=== PATIENT | male | born 1945 | race Caucasian/White ===

== ENCOUNTER 2016-10-24 10:40 | Emergency (ER) | payer MEDICARE, BC ==
[2016-10-24] MEDS ORDERED: Sodium Chloride 0.9% 10 ML Syringe FLUSH PRN (11:44)
--- NOTE | 2016-10-24 11:45 | EDM.PDOC ---
ED HPI GENERAL MEDICAL PROBLEM - General Chief Complaint: Chest Pain Stated Complaint: CHEST PAIN Time Seen by Provider: 10/24/16 11:09 Source of Information: Reports: Patient, Family, RN, RN Notes Reviewed History Limitations: Reports: No Limitations - History of Present Illness INITIAL COMMENTS - FREE TEXT/NARRATIVE: Patient presents to the ED at [facility] with vague complaints of chest pain. Patient states his chest pain started over the past 2 weeks and has been waxing and waining. He denies any SOB. No N/V/D. Patient has a history of a cardiac stent from 1995. He denies any focal neurological deficits. He states his pain is a dull ache. He does not think it is related to heartburn. He is not away of any activity that makes the pain worse. He has not sought any other prior medical treatment since the onset. Onset: Gradual Duration: Waxing/Waning Location: Reports: Chest Quality: Reports: Ache, Dull Severity: Mild Improves with: Reports: None Worsens with: Reports: None Associated Symptoms: Reports: No Other Symptoms Treatments [employer]ER: Reports: Other (see below) (None) - Related Data Allergies Allergy/AdvReac Type Severity Reaction Status Date / Time acetaminophen AdvReac Blurred Verified 10/24/16 12:28 [From Darvocet-N 100] [facility] NSAIDS (Non-Steroidal AdvReac Renal Verified 10/24/16 12:28 Anti-Inflamma Failure propoxyphene napsylate AdvReac Blurred Verified 10/24/16 12:28 [From Darvocet-N 100] [facility] Home Meds: Home Meds Magnesium 1,000 mg PO BID 04/03/13 [History] Omeprazole [Prilosec] 20 mg PO DAILY 04/03/13 [History] Opium Tincture 0.6 ml PO TIDMEALS 04/03/13 [History] traZODone 100 - 200 mg PO BEDTIME PRN 04/03/13 [History] Aspirin 325 mg PO DAILY 10/25/15 [History] Nitroglycerin [Nitrostat] 0.4 mg SL Q5M PRN 10/25/15 [History] Potassium Chloride [Klor-Con M20] 40 meq PO QID 10/25/15 [History] ALPRAZolam [Alprazolam] 1 tab PO BEDTIME 06/19/16 [History] Past Medical History HEENT History: Reports: Allergic Rhinitis, Cataract, Other (See Below) Other HEENT History: astigmatism Cardiovascular History: Reports: CAD, High Cholesterol, Other (See Below) Other Cardiovascular History: superior vena cava obstruction Respiratory History: Reports: Other (See Below) Other Respiratory History: nocturnal hypoxemia, lung mass Gastrointestinal History: Reports: Chronic Diarrhea, GERD, Other (See Below) Other Gastrointestinal History: ulcertive colitis Genitourinary History: Reports: Prostate Disorder, Other (See Below) Other Genitourinary History: CKD stage 4 Musculoskeletal History: Reports: Osteoarthritis, Other (See Below) Other Musculoskeletal History: ankylosing spondylitis, restless leg syndrome Psychiatric History: Reports: Anxiety, Depression, Other (See Below) Other Psychiatric History: insomnia Endocrine/Metabolic History: Reports: Other (See Below) Other Endocrine/Metabolic History: hypomagnesemia, hypokalemia, B-12 deficiency - Past Surgical History Cardiovascular Surgical History: Reports: Coronary Artery Stent GI Surgical History: Reports: Other (See Below) Musculoskeletal Surgical History: Reports: Knee Replacement, Shoulder Surgery Social & Family History - Tobacco Use Smoking Status *Q: Former Smoker - Alcohol Use Days Per Week of Alcohol Use: 0 - Recreational Drug Use Recreational Drug Use: No ED ROS GENERAL - Review of Systems Review Of Systems: See Below Constitutional: Denies: Fever, Chills, Weakness Respiratory: Denies: Shortness of Breath, Cough Cardiovascular: Reports: Chest Pain. Denies: Dyspnea on Exertion, Palpitations GI/Abdominal: Denies: Abdominal Pain, Nausea, Vomiting Skin: Reports: No Symptoms Neurological: Reports: No Symptoms. Denies: Headache, Numbness, Paresthesia, Tingling ED EXAM, GENERAL - Physical Exam Exam: See Below Exam Limited By: No Limitations General Appearance: Alert, No Apparent Distress Respiratory/Chest: No Respiratory Distress, Lungs Clear, Normal Breath Sounds Cardiovascular: Normal Peripheral Pulses, Regular Rate, Rhythm, No Murmur Peripheral Pulses: 2+: Radial (L), Radial (R) GI/Abdominal: Normal Bowel Sounds, Soft, Non-Tender Neurological: Alert, Oriented Skin Exam: Warm, Dry, Intact, Normal Color, No Rash EKG INTERPRETATION EKG Date: 10/24/16 Time: 10:51 Rhythm: Other Rate (Beats/Min): 60 [place]: Normal P-Wave: Present QRS: Normal ST-T: Normal QT: Normal WV/PQ Interval: 0.17 Comparison: No Change EKG Interpretation Comments: 1. Ectopic atrial rhythm 2. Possible right ventricular hypertrophy 3. Lateral myocardial infarction, of indeterminate age Course - Vital Signs Last Recorded V/S: Last Vital Signs Temp 35.6 C 10/24/16 10:45 Pulse 68 10/24/16 10:45 Resp 18 10/24/16 10:45 BP 129/69 10/24/16 10:45 Pulse Ox 97 10/24/16 10:45 - Orders/Labs/Meds Orders: Active Orders 24 hr Category Date Time Status EKG 12 Lead [EKG Documentation Completion] [RC] STAT Care 10/24/16 11:44 Ordered Chest 2V [CR] Stat Exams 10/24/16 11:43 Taken Sodium Chloride 0.9% [Saline Flush] Med 10/24/16 11:44 Active 10 ml FLUSH ASDIRECTED PRN Peripheral IV Insertion Adult [OM.PC] Routine Oth 10/24/16 11:44 Ordered Medication Orders Sodium Chloride (Saline Flush) 10 ml FLUSH ASDIRECTED PRN PRN Reason: Keep Vein Open Labs: Laboratory Tests 10/24/16 10/24/16 Range/Units 12:04 12:04 WBC 7.9 (4.0-10.0) x10^3/uL RBC 4.60 (4.5-6.0) x10^6/uL Hgb 15.2 (14.0-18.0) g/dL Hct 43.0 (40.0-52.0) % MCV 93.5 H (78.0-93.0) fL MCH 33.0 H (26.0-32.0) pg MCHC 35.3 (32.0-36.0) g/dL RDW Coeff of Kaleb 12.5 (10.0-15.0) % Plt Count 187 (130-400) x10^3/uL Neut % (Auto) 65.3 (50.0-80.0) % Lymph % (Auto) 20.4 L (25.0-50.0) % [place] % (Auto) 8.2 (2.0-11.0) % Eos % (Auto) 5.7 H (0.0-4.0) % Baso % (Auto) 0.4 (0.2-1.2) % Sodium 133 L (136-145) mmol/L Potassium 4.0 (3.5-5.1) mmol/L Chloride 97 L (98-107) mmol/L Carbon Dioxide 28 (21-32) mmol/L BUN 48 H (7-18) mg/dL Creatinine 2.8 H (0.70-1.30) mg/dL Est Cr Clr Drug Dosing TNP Estimated GFR (MDRD) 22 Glucose 81 (74-106) mg/dL Calcium 9.1 (8.5-10.1) mg/dL Corrected Calcium 9.18 (8.5-10.1) mg/dL Phosphorus 4.8 H (2.6-4.7) mg/dL Magnesium 2.2 (1.8-2.4) mg/dL Total Bilirubin 1.0 (0.2-1.0) mg/dL AST 14 L (15-37) U/L ALT 26 (16-63) U/L Alkaline Phosphatase 69 (46-116) U/L Creatine Kinase 45 (39-308) U/L Creatine Kinase Index 2.4 (0.0-4.0) % CK-MB (CK-2) 1.1 (0.0-3.6) ng/mL Troponin I < 0.017 (<=0.056) ng/mL Total Protein 7.7 (6.4-8.2) g/dL Albumin 3.9 (3.4-5.0) g/dL Globulin 3.8 Albumin/Globulin Ratio 1.03 Meds: Medications Generic Name Dose Route Start Last Admin Trade Name Freq PRN Reason Stop Dose Admin Sodium Chloride 10 ml 10/24/16 11:44 Saline Flush FLUSH ASDIRECTED PRN Keep Vein Open Departure - Departure Time of Disposition: 12:45 Disposition: Home, Self-Care 01 Condition: Good Clinical Impression: Atypical chest pain Instructions: Nonspecific Chest Pain, [id number] Referrals: Juliana Coleman DO [Primary Care Provider] - Forms: ED Department Discharge Additional Instructions: 1. All blood work and other testing was normal today 2. Stay well hydrated and rest 3. Follow up with your Primary Care Provider - Problem List Review Problem List Initiated/Reviewed/Updated: Yes - My Orders Last 24 Hours: My Active Orders 10/24/16 11:43 Chest 2V [CR] Stat 10/24/16 11:44 EKG 12 Lead [EKG Documentation Completion] [RC] STAT Sodium Chloride 0.9% [Saline Flush] 10 ml FLUSH ASDIRECTED PRN Peripheral IV Insertion Adult [OM.PC] Routine - Assessment/Plan Last 24 Hours: My Active Orders 10/24/16 11:43 Chest 2V [CR] Stat 10/24/16 11:44 EKG 12 Lead [EKG Documentation Completion] [RC] STAT Sodium Chloride 0.9% [Saline Flush] 10 ml FLUSH ASDIRECTED PRN Peripheral IV Insertion Adult [OM.PC] Routine
[2016-10-24 12:24] VITALS: BP 129/69
[2016-10-24 12:40] LABS: CHLORIDE,CL 97 mmol/L (98-107); SODIUM,NA 133 mmol/L (136-145)
== END 2016-10-24 12:56 | disposition home or self-care (01) ==
LOC: VM.ED 10:40
DX: R07.89 Other chest pain (principal); I25.10 Atherosclerotic heart disease of native coronary artery without angina pectoris; E78.00 Pure hypercholesterolemia, unspecified; K21.9 Gastro-esophageal reflux disease without esophagitis; F41.9 Anxiety disorder, unspecified; F32.9 Major depressive disorder, single episode, unspecified; N18.4 Chronic kidney disease, stage 4 (severe); M19.90 Unspecified osteoarthritis, unspecified site; Z87.891 Personal history of nicotine dependence; Z79.82 Long term (current) use of aspirin; Z79.899 Other long term (current) drug therapy; Z88.8 Allergy status to other drugs, medicaments and biological substances
CPT/HCPCS: 36415; 71020; 80053; 82550; 82553; 83735; 84100; 84484; 85025; 93005; 99284-GF; 99285

== ENCOUNTER 2017-06-19 14:13 | Emergency (ER) | payer MEDICARE, BC ==
[2017-06-19 14:26] VITALS: BP 129/61
[2017-06-19] MEDS ORDERED: Lidocaine 2% Jelly 10 ML Urojet MUCMEM ONE (14:46)
--- NOTE | 2017-06-19 17:10 | EDM.PDOC ---
ED HPI GENERAL MEDICAL PROBLEM - General Chief Complaint: Genitourinary Problem Stated Complaint: CATHETER PROBLEMS Time Seen by Provider: 06/19/17 14:18 Source of Information: Reports: Patient - History of Present Illness INITIAL COMMENTS - FREE TEXT/NARRATIVE: Developed hematuria yesterday. Had been self cathing intermittently due to urinary retention malfunctioning. He does also have cystic lesions on his kidney. Onset Date: 06/18/17 Duration: Getting Worse Location: Reports: Abdomen Quality: Reports: Ache, Burning - Related Data Allergies Allergy/AdvReac Type Severity Reaction Status Date / Time Dzuivbq-Cii-Amo Reductase Allergy Other Verified 06/19/17 14:29 Inhibitor acetaminophen AdvReac Blurred Verified 06/19/17 14:29 [From Darvocet-N 100] [facility] NSAIDS (Non-Steroidal AdvReac Renal Verified 06/19/17 14:29 Anti-Inflamma Failure propoxyphene napsylate AdvReac Blurred Verified 06/19/17 14:29 [From Darvocet-N 100] [facility] Home Meds: Home Meds Magnesium 500 mg PO BID 04/03/13 [History] Opium Tincture 0.6 ml PO TIDMEALS 04/03/13 [History] traZODone 100 - 200 mg PO BEDTIME PRN 04/03/13 [History] Nitroglycerin [Nitrostat] 0.4 mg SL Q5M PRN 10/25/15 [History] Potassium Chloride [Klor-Con M20] 40 meq PO TID 10/25/15 [History] ALPRAZolam [Alprazolam] 1 tab PO BEDTIME 06/19/16 [History] Aspirin 81 mg PO DAILY 06/19/17 [History] Cholecalciferol (Vitamin D3) [Vitamin D3] 5,000 unit PO DAILY 06/19/17 [History] Cyanocobalamin (Vitamin B-12) [Cyanocobalamin Injection] 1,000 mcg IJ Q14D 06/19 [History] Mirtazapine [Remeron] 15 mg PO BEDTIME 06/19/17 [History] Tamsulosin [Tamsulosin 24 Hr] 0.4 mg PO DAILY 06/19/17 [History] Thiamine HCl [B-1] 100 mg PO DAILY 06/19/17 [History] Past Medical History HEENT History: Reports: Allergic Rhinitis, Cataract, Other (See Below) Other HEENT History: astigmatism Cardiovascular History: Reports: CAD, High Cholesterol, Other (See Below) Other Cardiovascular History: superior vena cava obstruction Respiratory History: Reports: Other (See Below) Other Respiratory History: nocturnal hypoxemia, lung mass Gastrointestinal History: Reports: Chronic Diarrhea, GERD, Other (See Below) Other Gastrointestinal History: ulcertive colitis Genitourinary History: Reports: Prostate Disorder, Other (See Below) Other Genitourinary History: CKD stage 4 Musculoskeletal History: Reports: Osteoarthritis, Other (See Below) Other Musculoskeletal History: ankylosing spondylitis, restless leg syndrome Psychiatric History: Reports: Anxiety, Depression, Other (See Below) Other Psychiatric History: insomnia Endocrine/Metabolic History: Reports: Other (See Below) Other Endocrine/Metabolic History: hypomagnesemia, hypokalemia, B-12 deficiency - Past Surgical History Cardiovascular Surgical History: Reports: Coronary Artery Stent GI Surgical History: Reports: Other (See Below) Musculoskeletal Surgical History: Reports: Knee Replacement, Shoulder Surgery Social & Family History - Tobacco Use Smoking Status *Q: Unknown Ever Smoked ED ROS GENERAL - Review of Systems Review Of Systems: See Below Constitutional: Reports: No Symptoms HEENT: Reports: No Symptoms Respiratory: Reports: No Symptoms Cardiovascular: Reports: No Symptoms Endocrine: Reports: No Symptoms GI/Abdominal: Reports: No Symptoms : Reports: Hematuria Musculoskeletal: Reports: No Symptoms Skin: Reports: No Symptoms Neurological: Reports: No Symptoms Psychiatric: Reports: No Symptoms Hematologic/Lymphatic: Reports: No Symptoms Immunologic: Reports: No Symptoms ED EXAM, GENERAL - Physical Exam Exam: See Below Exam Limited By: No Limitations General Appearance: Alert, WD/WN, No Apparent Distress Ears: Normal External Exam, Normal Canal, Hearing Grossly Normal, Normal TMs Ear Exam: Bilateral Ear: Auricle Normal, Canal Normal, TM normal Nose: Normal Inspection, Normal Mucosa, No Blood Throat/Mouth: Normal Inspection, Normal Lips, Normal Teeth, Normal Gums, Normal Oropharynx, Normal Voice, No Airway Compromise Head: Atraumatic, Normocephalic Neck: Normal Inspection, Supple, Non-Tender, Full Range of Motion Respiratory/Chest: No Respiratory Distress, Lungs Clear, Normal Breath Sounds, No Accessory Muscle Use, Chest Non-Tender Cardiovascular: Normal Peripheral Pulses, Regular Rate, Rhythm, No Edema, No Gallop, No JVD, No Murmur, No Rub GI/Abdominal: Normal Bowel Sounds, Soft, Non-Tender, No Organomegaly (Male) Exam: No Hernia, Normal Inspection, Normal Prostate Rectal (Males) Exam: Deferred Back Exam: Normal Inspection, Full Range of Motion Extremities: Normal Inspection, Normal Range of Motion, Non-Tender Neurological: Alert, Oriented, CN II-XII Intact, Normal Cognition, Normal Gait, Normal Reflexes, No Motor/Sensory Deficits Psychiatric: Normal Affect, Normal Mood Skin Exam: Warm, Dry, Intact, Normal Color, No Rash Lymphatic: No Adenopathy Course - Vital Signs Last Recorded V/S: Last Vital Signs Temp 37.2 C 06/19/17 14:18 Pulse 60 06/19/17 14:18 Resp 18 06/19/17 14:18 BP 129/61 06/19/17 14:18 Pulse Ox 99 06/19/17 14:18 - Orders/Labs/Meds Orders: Active Orders 24 hr Category Date Time Status Bladder Scan [RC] ONETIME Care 06/19/17 14:45 Active Urinary Catheter Assessment [RC] ASDIRECTED Care 06/19/17 14:50 Active Urinary Catheter Insertion [Insert Urinary Catheter] [ Care 06/19/17 15:00 Ordered OM.PC] Q24H Abdomen Pelvis wo Cont [CT] Stat Exams 06/19/17 15:18 Taken Meds: Medications Discontinued Medications Generic Name Dose Route Start Last Admin Trade Name Gibsonq PRN Reason Stop Dose Admin Lidocaine HCl 10 ml 06/19/17 14:46 06/19/17 15:05 Xylocaine 2% Jelly MUCMEM 06/19/17 14:47 10 ml ONETIME ONE Administration - Radiology Interpretation Free Text/Narrative:: CT abd/pelvis shows hypertrophied bladder wall, and numerous cystic lesions in both kidneys. Source of bleeding likely the bladder. Suggested F/U for cysto and MRI of the abdomen and pelvis. Departure - Departure Time of Disposition: 16:48 Disposition: Home, Self-Care 01 Clinical Impression: Cystitis - Discharge Information Instructions: Urinary Tract Infection, Adult Referrals: Juliana Coleman DO [Primary Care Provider] - Forms: ED Department Discharge Additional Instructions: Follow-up with nephrology and urology. You will need a cystogram to determine if the bleeding is just from the bladder or if it involves the kidneys as well. - My Orders Last 24 Hours: My Active Orders 06/19/17 14:45 Bladder Scan [RC] ONETIME 06/19/17 14:50 Urinary Catheter Assessment [RC] ASDIRECTED 06/19/17 15:00 Urinary Catheter Insertion [Insert Urinary Catheter] [OM.PC] Q24H 06/19/17 15:18 Abdomen Pelvis wo Cont [CT] Stat - Assessment/Plan Last 24 Hours: My Active Orders 06/19/17 14:45 Bladder Scan [RC] ONETIME 06/19/17 14:50 Urinary Catheter Assessment [RC] ASDIRECTED 06/19/17 15:00 Urinary Catheter Insertion [Insert Urinary Catheter] [OM.PC] Q24H 06/19/17 15:18 Abdomen Pelvis wo Cont [CT] Stat
== END 2017-06-19 16:48 | disposition home or self-care (01) ==
LOC: VM.ED 14:13
DX: N30.91 Cystitis, unspecified with hematuria (principal); N18.4 Chronic kidney disease, stage 4 (severe); Z88.8 Allergy status to other drugs, medicaments and biological substances; Z79.82 Long term (current) use of aspirin; Z79.899 Other long term (current) drug therapy
CPT/HCPCS: 51702; 74176; 99284

== ENCOUNTER 2018-09-14 10:50 | Inpatient (IN) | payer MEDICARE, BC ==
[2018-09-14] MEDS ORDERED: Sodium Chloride 0.9% 10 ML Syringe FLUSH PRN (11:49)
[2018-09-14] MEDS: Sodium Chloride 0.9% 1,000 ML IV SCH ×2 (12:29→17:58)
[2018-09-14] MEDS ORDERED: Nitroglycerin 0.4 MG Tab.SL SL PRN (14:07)
[2018-09-14] MEDS ORDERED: traZODone 50 MG Tab PO PRN (14:07)
--- NOTE | 2018-09-14 16:17 | CR ---
[id number] RAD/RAD Chest PA And Lateral EXAM: RAD Chest PA And Lateral INDICATION: COUGH. COMPARISON: CT abdomen pelvis 06/19/2017, chest radiograph 10/24/2016. DISCUSSION: Cardiomediastinal silhouette is normal in size and contour. No infiltrate, effusion, pneumothorax, or edema. 2.9 cm right lower lobe mass is again identified. Extensive changes of chronic obstructive pulmonary disease. IMPRESSION: No acute cardiopulmonary findings. Again identified is a 2.9 cm right lower lobe mass. Kelby Hobbs DO 09/14/18 [id number] Thank you for allowing us to participate in the care of your patient.
[2018-09-14] MEDS: OPIUM TINCTURE 10 MG/ML PO SCH (17:11)
[2018-09-14 17:26] LABS: ANION GAP 17.6 mmol/L (10-20)
[2018-09-14] MEDS ORDERED: Gabapentin 100 MG Cap PO SCH (20:00)
[2018-09-14] MEDS ORDERED: ALPRAZolam 0.25 MG Tab PO SCH (20:00)
[2018-09-14] MEDS: Sodium Bicarbonate 650 MG Tab PO SCH (21:54)
--- NOTE | 2018-09-15 00:05 | HP ---
CHIEF COMPLAINT: Dizziness, not feeling well, hypercalcemia. HISTORY OF PRESENT ILLNESS: This is a 73-year-old male, who has chronic kidney disease stage 4, GFR around 18, who had come to the clinic for routine lab work today and his calcium was 13.1, albumin normal. A week ago, his calcium was 9. He is on calcitriol every other day. He took a dose last evening. He follows with Nephrology. He is also on sodium bicarb. His BUN has been up to 59 today. He has required some IV fluids through the clinic and has been getting biopsy for a right lung mass at [facility], but it came back negative. However, they are planning another biopsy on Friday. He has had a cough, but no fever, no chills. He does have a past medical history of ulcerative colitis and resection, so he has malabsorption. He has been drinking more water, so has noted a lot of watery ostomy output and he normally takes a tincture of opium to control his diarrhea. ALLERGIES: Include NSAIDs, Darvocet, statins. MEDICATIONS: His medication list is reviewed and does include potassium 60 mEq 3 times a day, magnesium 500 daily, B12 every 2 weeks, sodium bicarb 650 b.i.d., tincture of opium 6 mg 3 times a day before meals, trazodone 100 to 200 mg as needed for sleep, Neurontin 200 mg at bedtime, Xanax 0.25 mg at bedtime, calcitriol 0.25 every other day, nitroglycerin as needed for chest pain, ostomy supplies, aspirin 81 mg daily. PAST MEDICAL HISTORY: Quite extensive, includes ankylosing spondylitis; allergic rhinitis; anxiety; B12 deficiency; BPH, he has had laser TURP surgery at 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 Otherwise, other surgeries include right total knee, left total knee, tonsils and adenoids, colonoscopy, colectomy with ileostomy, internal reservoir in 1991, 1995 removal of the internal reservoir and ileostomy placed again, arthroscopy of both shoulders. SOCIAL HISTORY: The patient is . He lives at home with his around [facility]. He has 2 daughters and 2 sons. He is a nonsmoker currently. FAMILY HISTORY: Father had dementia. Mother had heart disease. Both are . REVIEW OF SYSTEMS: GENERAL: The patient has generally felt fatigued and unwell. His weight has actually gone down about 9 pounds over the last 4 months. No fever, no chills. HEENT: No trouble swallowing. CARDIAC: No chest pain. No palpitations. RESPIRATORY: No shortness of breath, but he has had cough. ABDOMEN: No abdominal pain, but more ostomy output. Otherwise, all systems reviewed and found to be negative unless otherwise stated. He is having no new bone aches or pains. PHYSICAL EXAMINATION: VITAL SIGNS: On admission, temperature 97.1, weight 79.6 kg, pulse 69, blood pressure 128/86, respiratory rate 16, O2 of 100 on room air. GENERAL: He is in no acute distress. HEART: Regular rate and rhythm. S1, S2 without murmur. LUNGS: Lung sounds are clear to auscultation bilaterally without crackles or wheezes. ABDOMEN: Has an ostomy in place. It is soft. Positive bowel sounds. Nontender. EXTREMITIES: Warm and dry. No edema. SKIN: Normal. No paleness noted. No pitting edema. MENTAL STATUS: Alert and orientated x3. LABORATORY DATA: Lab work reviewed through the clinic this morning, did show him to have a glucose of 95, BUN 59, creatinine 3.4, sodium 129, potassium 4.6, chloride 101, bicarb 16, calcium 13.1, albumin 4.3, phosphorus 4.1. GFR 18. ASSESSMENT: 1. Acute hypercalcemia, likely due to medications with the calcitriol. I believe we will be able to just rehydrate with IV fluids. Repeat a calcium later today. Consider some calcitonin if needed. Probably will need to avoid any bisphosphonates given his severe kidney disease. 2. Hyponatremia, probably due to increased water intake. His sodium level is stable when compared to last week. We will continue to monitor. 3. Chronic kidney disease stage 4, severe. He is near his baseline. He is following closely with Nephrology. 4. Lung mass. He has an upcoming biopsy this week. We will see how he is doing tomorrow. 5. Acidosis, likely due to renal failure. He is on the sodium bicarb. 6. Remote history of coronary artery disease with stenting. 7. Anxiety. We will continue his home medications for sleep as well. PLAN: At this point, patient is admitted to acute cares. We will give him 200 mL of fluid per hour for the 1st L and repeat lab work. We will monitor urine output closely. We will get a bladder scan. We will get lab work in the morning as well. We will get a PTH and a PTHrP, and vitamin D, although he denies any other exogenous use of that. He is a code level 1. I held off on DVT prophylaxis. We will reassess tomorrow. He may be able to go home as soon as tomorrow if things improve. Otherwise, all this was discussed with him and his . They are comfortable with the plan. THIERRYA: 09/14/2018 17:19:05 MODL: 09/14/2018 23:57:56 /[id number]
[2018-09-15 06:43] VITALS: BP 131/61; PULSE 70
[2018-09-15 06:55] LABS: ANION GAP 17.5 mmol/L (10-20)
[2018-09-15] MEDS: OPIUM TINCTURE 10 MG/ML PO SCH (07:00)
[2018-09-15] MEDS: Sodium Bicarbonate 650 MG Tab PO SCH (07:17)
[2018-09-15] MEDS: Sodium Chloride 0.9% 1,000 ML IV SCH (07:17)
[2018-09-15] MEDS ORDERED: Potassium Chloride 20 MEQ Tab.ER PO SCH ×2 (08:14→20:00)
--- NOTE | 2018-09-16 02:28 | DISCH ---
PRIMARY DISCHARGE DIAGNOSIS: Severe hypercalcemia with dizziness. SECONDARY DISCHARGE DIAGNOSES: 1. Chronic kidney disease stage 4, severe. 2. Dehydration. 3. Secondary hyperparathyroidism due to renal insufficiency, on calcitriol. 4. History of ulcerative colitis with previous bowel resection and malabsorption. 5. High ostomy output on opium. 6. Lung mass, planning for repeat biopsy this week at [facility]. 7. 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 8. Remote history of coronary artery disease with stent back in 1995 to the right coronary artery. 9. Neurogenic bladder and benign prostatic hypertrophy with surgery 1 year ago. The patient was emptying okay, postvoid residual here under 10. 10.Moderate chronic obstructive pulmonary disease, not requiring inhalers and remote history of smoking. 11.Insomnia. 12.Anxiety. 13.Hypomagnesemia. 14.Hypokalemia. 15.Hyperlipidemia. 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 17.Ankylosing spondylitis. REASON FOR ADMISSION: On the date of admission, this 73-year-old came in for routine weekly labs due to worsening renal function. His calcium, which was normal the week prior was 13.1, his creatinine was 3.4, which had been around his recent baseline, sodium 129, also around his recent baseline. He had been drinking more water, but feeling poorly at home, dizzy, had had to have fluids at outpatient last week. Decision was made to admit him, hold his calcitriol, monitor lab work, and give him further medications for hypercalcemia as needed. His calcium came down nicely and was actually 8.6 on discharge with just the fluids. He had a total of 3.5 L in and was voiding adequately during his stay. Overall, feeling much better and stable and ready for discharge on the . PHYSICAL EXAMINATION: VITAL SIGNS: Discharge vitals include a temperature of 97.3, pulse 70, blood pressure 131/61, respiratory rate 16, O2 of 99% on room air. GENERAL: He is in no acute distress. HEART: Regular rate and rhythm. S1, S2 without murmur. LUNGS: Lung sounds are clear to auscultation bilaterally without crackles or wheezes. ABDOMEN: Nondistended, nontender. EXTREMITIES: Warm and dry. No edema. MENTAL STATUS: He is alert and orientated x3. DISCHARGE PLANS/INSTRUCTIONS: We did leave his right arm IV in place as he is going for a biopsy tomorrow at [facility]. He will have lab work again Friday, which will include a magnesium, magnesium will be on hold till then. 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 PTH and PTHrP were drawn here and are pending. His potassium was decreased to 60 twice daily. In fact, it was held here as he had a potassium that remained stable at 4.5. His followup with me will be on 09/24/2018. We will look for his lab work again this coming Friday with a mag. MKA: 09/15/2018 15:42:28 MODL: 09/16/2018 02:20:09 /[id number]
== END 2018-09-15 09:39 | disposition home or self-care (01) | DRG 641 ==
LOC: VM.MS 11:27
PROVIDERS: ADMIT Internal Medicine; ATTEND Internal Medicine
DX: E83.52 Hypercalcemia (principal); N18.4 Chronic kidney disease, stage 4 (severe); N25.81 Secondary hyperparathyroidism of renal origin; E87.1 Hypo-osmolality and hyponatremia; E86.0 Dehydration; E78.5 Hyperlipidemia, unspecified; E87.6 Hypokalemia; E53.8 Deficiency of other specified B group vitamins; G47.00 Insomnia, unspecified; M45.9 Ankylosing spondylitis of unspecified sites in spine; F41.9 Anxiety disorder, unspecified; J44.9 Chronic obstructive pulmonary disease, unspecified; I25.10 Atherosclerotic heart disease of native coronary artery without angina pectoris; K21.9 Gastro-esophageal reflux disease without esophagitis; G89.29 Other chronic pain; M54.9 Dorsalgia, unspecified; G25.81 Restless legs syndrome; T45.2X5A Adverse effect of vitamins, initial encounter; R91.8 Other nonspecific abnormal finding of lung field; Z95.5 Presence of coronary angioplasty implant and graft
CPT/HCPCS: 36415; 51798; 71046; 80048; 80069; 82306; 82397; 83970; 85025; 93005; A9270-GY; J7030

== ENCOUNTER 2018-10-14 11:28 | Observation (INO) | payer MEDICARE, BC ==
[2018-10-14] MEDS ORDERED: Sodium Chloride 0.9% 10 ML Syringe FLUSH PRN (12:11)
[2018-10-14] MEDS ORDERED: cefTRIAXone 1 GM Vial IVPUSH ONE (12:14)
[2018-10-14] MEDS: Sodium Chloride 0.9% 1,000 ML IV SCH ×2 (12:48→17:50)
--- NOTE | 2018-10-14 13:48 | HP ---
CHIEF COMPLAINT: Renal failure and bladder infection. HISTORY OF PRESENT ILLNESS: This is a 73-year-old male with known chronic kidney disease stage 4 to 5 with recent worsening of creatinine up to 4.46 yesterday, BUN 94. He got 1 L of fluids. He does feel a little better, but he is lightheaded upon standing. He has not had a good appetite, but is not nauseated. In the past 3-4 days now, he has had burning with urination and some urgency. He had a history of BPH surgery over a year ago that went well. When he was last hospitalized, he was not retaining. He has had low-grade fevers less than 100 and some left low back pain. He does have a history of kidney stones as well as a culture that was done in September from his knitting machine operator, which showed Citrobacter, but he was not treated as he was not having any symptoms at that time. The patient also has a new diagnosis of lung cancer. He is planning on meeting with Radiation people next week. He has not started any treatments. Otherwise, he has not had any shortness of breath. No new coughing problems. He has felt some chills. ALLERGIES: Include NSAIDs, kidney failure, Darvocet, blurred vision, and statin intolerance. MEDICATIONS: Currently include: 1. Xanax 0.25 every 8 hours as needed for nervousness. 2. Potassium 60 mEq twice daily. 3. B12 injections every 2 weeks. 4. Sodium bicarb 650 two times a day. 5. Opium 3 times a day to prevent high ostomy output. 6. Trazodone 100 mg 1-2 at bedtime. 7. Nitroglycerin as needed for chest pain. 8. Aspirin 81 mg daily. 9. Neurontin 200 at bedtime. PAST MEDICAL HISTORY: Quite complex. Includes new adenocarcinoma of the right lung diagnosed in September by biopsy; ankylosing spondylitis; chronic anxiety; B12 deficiency; BPH with atonic bladder; coronary artery disease with remote stenting in 1995; severe chronic kidney disease stage 4, but recently creatinine had been less than 4; chronic diarrhea with ileostomy due to his history of previous bowel resections for ulcerative colitis. This is likely what contributed to his renal failure with recurrent insults due to hypovolemia. He also has hypomagnesemia, on replacement; hypokalemia, on replacement; insomnia; moderate COPD, but not on any inhalers; chronic malabsorption; neurogenic bladder and BPH status post TURP in 08/2017; osteoarthritis; previous knee replacement; restless legs syndrome. 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 PAST SURGICAL HISTORY: As above. Multiple things are already listed. He has had both knees replaced, tonsils and adenoids. He has had previous colon surgeries, colectomy with ileostomy, internal reservoir, removal of internal reservoir, colonoscopies, arthroscopy of both shoulders. Most recent surgery was a right shoulder arthroscopy in May. REVIEW OF SYSTEMS: General: He has felt fatigued. He had not lost any significant weight. HEENT: No trouble swallowing. Cardiac: No chest pain. Respiratory: As stated in the HPI. GI: No new abdominal pain. : Stated in the HPI. Otherwise, all systems reviewed and found to be negative unless otherwise stated. PHYSICAL EXAMINATION: Vital Signs: Weight 178 pounds, blood pressure 90/52, temperature 97.8, pulse 68, O2 of 100 on room air. General: He is in no acute distress. Heart: Regular rate and rhythm. S1, S2 without murmur. Lungs: Sounds are clear to auscultation bilaterally without crackles or wheezes. Abdomen: He has ostomy in place and left low back is examined. There is no flank tenderness. Mental Status: He is alert. He is orientated x3. LABORATORY DATA: His lab work from the clinic did show a UA to have greater than 50 wbc's with large leukocyte esterase and wbc clumps present, nitrite was negative. His white count was normal at 8.9; hemoglobin 12.3, down slightly from his last check; platelets 203. Glucose 118; BUN 81, down from 94 yesterday; creatinine 4.47; sodium up to 131 from 127 yesterday; potassium 4.1; chloride 100; bicarb 17, stable since yesterday; calcium 8.8; GFR is 13. ASSESSMENT AND PLAN: 1. Acute on chronic renal failure, possibly due to poor intake and current urinary tract infection. We will treat the patient with IV Rocephin and give him another liter of fluid today. He did get 1 L yesterday of normal saline. We will consider repeating lab work later today if discharging otherwise we will repeat it in the AM. 2. Complicated bladder infection in this patient with known history of atonic bladder. Previous culture showed Citrobacter sensitive to Cipro and Rocephin. I will give him some IV Rocephin today. I think that will be safest for his kidneys. We will culture this urine. 3. Mild anemia, probably due to his chronic kidney disease. 4. Lightheaded and lower blood pressures, probably due to some volume depletion. 5. Metabolic acidosis. He is already on sodium bicarb. This is likely due to his kidneys. This is staying the same. 6. Hyponatremia, probably due to some dehydration. This has improved since yesterday. 7. Hypokalemia. His potassium is well replaced. 8. History of kidney stones. We will get CT to rule out any kidney stones. If he has any obstructing lesions or hydronephrosis, he will likely require transfer. 9. History of benign prostatic hyperplasia. We will do a postvoid residual ultrasound. PLAN: At this point, after discussion with the patient, his , and daughter, he is being admitted for observation for fluids, antibiotics, and workup. Anticipate discharge as soon as later this afternoon or tomorrow morning. Therefore, he will be on observation. He is a code level 1. No DVT prophylaxis indicated due to the fact that this is planned to be a very short term stay. The patient is also in the process of scheduling with a new knitting machine operator at [facility] as well as all his cancer treatments are going to be taking place over there. We will update [facility] on his discharge. ANGELITA: 10/14/2018 12:25:45 MODL: 10/14/2018 13:42:33 /[id number]
--- NOTE | 2018-10-14 14:56 | CT ---
[id number] CT/CT Abdomen Pelvis WO IV EXAM: ABDOMEN AND PELVIS CT WITHOUT CONTRAST INDICATION: Low back pain and history of renal stones. COMPARISON: June 19, 2017. DISCUSSION: No renal/ureteral calculus or hydronephrosis is identified. There are bilateral renal cysts measuring up to 20 mm on the right and 14 mm on the left. In the imaged right lung base there is a spiculated 5.4 x 2.4 cm mass in the right lower lobe abutting the major fissure. This was only partially imaged on the previous examination, but may have increased in size and is suspicious for primary lung carcinoma. There are other areas of scarring or atelectasis in the lung bases. Coronary artery calcifications. Small sliding type hiatus hernia. A mild thick-walled appearance of the distal esophagus may relate to underlying esophagitis. A 12 mm hypodensity in the right lobe of the liver is stable to slightly increased. The colon is surgically absent there is a right lower quadrant small bowel ostomy. A presacral soft tissue mass is stable to slightly decreased now measuring about 5.2 cm transverse by 3.7 cm anterior-posterior. Small fat-containing left inguinal hernia. Stable mild splenomegaly. Degenerative changes in the lumbar spine are most significant at L4-L5 and L5-S1 where there is a degree of bilateral foraminal stenosis that appears at least moderate. The osseous structures are otherwise unremarkable. IMPRESSION: 1. No renal/ureteral calculus or hydronephrosis. 2. A spiculated right lower lobe mass remain suspicious for primary lung malignancy. This may have increased in size, but the mass is only partially imaged on the prior examination. 3. A thick-walled appearance of the urinary bladder is nonspecific, but correlation with urinalysis is suggested to further exclude evidence of infectious cystitis. Eric Robison MD 10/14/18 [id number] Thank you for allowing us to participate in the care of your patient.
[2018-10-14] MEDS ORDERED: Nitroglycerin 0.4 MG Tab.SL SL PRN (16:45)
[2018-10-14] MEDS ORDERED: Non-Formulary Medication 1 Each (Trazodone 100 MG) PO PRN (16:45)
[2018-10-14] MEDS ORDERED: ALPRAZolam 0.25 MG Tab PO PRN (16:45)
[2018-10-14] MEDS: OPIUM TINCTURE 10 MG/ML PO SCH (17:42)
[2018-10-14] MEDS ORDERED: traZODone 50 MG Tab PO PRN (17:42)
[2018-10-14] MEDS ORDERED: Gabapentin 100 MG Cap PO SCH (20:00)
[2018-10-14] MEDS: Sodium Bicarbonate 650 MG Tab PO SCH (20:15)
[2018-10-14] MEDS: Potassium Chloride 20 MEQ Tab.ER PO SCH (20:15)
[2018-10-15 06:13] VITALS: BP 81/37
[2018-10-15] MEDS: OPIUM TINCTURE 10 MG/ML PO SCH (06:31)
[2018-10-15 07:00] LABS: ANION GAP 18.5 mmol/L (10-20)
[2018-10-15] MEDS: Potassium Chloride 20 MEQ Tab.ER PO SCH (07:54)
[2018-10-15] MEDS: Sodium Bicarbonate 650 MG Tab PO SCH (07:55)
[2018-10-15] MEDS ORDERED: cefTRIAXone 1 GM Vial IVPUSH SCH (08:00)
[2018-10-15] MEDS ORDERED: Aspirin 81 MG Tab.EC PO SCH (08:00)
[2018-10-15] MEDS ORDERED: Cyanocobalamin (Vitamin B12) 1,000 MCG/ML SDV IM SCH (09:00)
--- NOTE | 2018-10-15 10:58 | DISCH ---
PRIMARY DISCHARGE DIAGNOSES: 1. Acute on chronic renal failure. 2. Urinary tract infection with previous culture showing Citrobacter. 3. Hyponatremia due to volume depletion and dehydration, resolving. 4. Right lower lobe lung cancer, planning outpatient radiation next week. 5. Hypotension due to volume depletion, asymptomatic. 6. Mild anemia, stable. No acute signs of bleeding. 7. Metabolic acidosis, on treatments per Nephrology. 8. Hypokalemia, chronic, on replacement with history of malabsorption. 9. History of benign prostatic hyperplasia. No evidence of obstruction. His urine output was excellent. His postvoid residuals were less than 100. 10.Remote history of kidney stones with CT scan not showing any kidney stones. 11.Ulcerative colitis with ostomy and high output from that, doing stable, on opium. REASON FOR ADMISSION: On the date of admission, this 73-year-old male came into the clinic having burning with urination for 3 or more days and low-grade fever and chills. He had previously had lab work which showed his creatinine to go up from 3.6 to 4.6, so he received a liter of fluids yesterday. His creatinine still remained at 4.6, but his BUN went down from 96 to 81. His intake had not been great for food, but he was sort of forcing himself to eat, but he was drinking liquids, likely he just was unable to keep up with his outputs. During his admission, he received 2 L of fluid. He was able to take in a liter and had 1400 of urine output. He was having no shortness of breath. No leg swelling. He was treated with IV Rocephin, he got 2 doses. He was afebrile. Blood pressures did go down over night as low as 78/38, but were fine at 112/53 by the next morning, and he was feeling better and hoping to be discharged. DISCHARGE PLANS AND INSTRUCTIONS: The patient will go home and take Ceftin for another 3 days. He will follow up with Radiation at [facility] next week. He will have lab work on Friday again. We will arrange for IV fluids again if needed. He will continue his same medications. If he gets dizzy, he should return. PHYSICAL EXAMINATION: Vital Signs: On discharge include temperature 98.8, pulse 61, blood pressure 112/53, respiratory rate 14, O2 of 95% on room air. General: He is in no acute distress. Heart: Regular rate and rhythm. S1, S2 without murmur. Lungs: Sounds are clear to auscultation bilaterally without crackles or wheezes. Abdomen: Soft, nontender. Ostomy in place. Extremities: Warm and dry. No edema. Mental Status: Alert and orientated x3. His urine is being cultured through [facility]. No results are available yet. Otherwise, he is being discharged in a stable condition. MKA: 10/15/2018 08:51:01 MODL: 10/15/2018 10:48:39 /[id number]
== END 2018-10-15 09:25 | disposition home or self-care (01) ==
LOC: VM.MS 11:28
PROVIDERS: ADMIT Internal Medicine; ATTEND Internal Medicine
DX: N17.9 Acute kidney failure, unspecified (principal); N18.5 Chronic kidney disease, stage 5; D63.1 Anemia in chronic kidney disease; N30.90 Cystitis, unspecified without hematuria; B96.89 Other specified bacterial agents as the cause of diseases classified elsewhere; E87.1 Hypo-osmolality and hyponatremia; E86.0 Dehydration; E87.2 Acidosis; E87.6 Hypokalemia; E21.3 Hyperparathyroidism, unspecified; I95.89 Other hypotension; I25.10 Atherosclerotic heart disease of native coronary artery without angina pectoris; C34.31 Malignant neoplasm of lower lobe, right bronchus or lung; J44.9 Chronic obstructive pulmonary disease, unspecified; K51.90 Ulcerative colitis, unspecified, without complications; F41.9 Anxiety disorder, unspecified; Z88.6 Allergy status to analgesic agent; Z88.5 Allergy status to narcotic agent; Z88.8 Allergy status to other drugs, medicaments and biological substances; Z93.3 Colostomy status; Z95.5 Presence of coronary angioplasty implant and graft; Z79.82 Long term (current) use of aspirin; Z79.899 Other long term (current) drug therapy
CPT/HCPCS: 36415; 51798; 74176; 80048; 85025; 96361; 96374; 96376; A9270-GY; G0378; G0379; J0696; J7030

== ENCOUNTER 2019-10-05 03:22 | Emergency (ER) | payer MEDICARE, BC ==
[2019-10-05] MEDS ORDERED: Sodium Chloride 0.9% 10 ML Syringe FLUSH PRN (03:57)
--- NOTE | 2019-10-05 04:09 | EDM.PDOC ---
ED HPI GENERAL MEDICAL PROBLEM - General Chief Complaint: Fever Stated Complaint: S\P Hip Surgery; Fever Time Seen by Provider: 10/05/19 03:57 Source of Information: Reports: Patient, Family - History of Present Illness INITIAL COMMENTS - FREE TEXT/NARRATIVE: Pa is a 74 y/o male who comes to the ER by EMS after he awoke feeling warm at home. His woke up and he was confused and felt quite hot. His took his temperature and it was 102. He had a left hip revision 6 days ago in [place]. Hip surgery in February to fix his left hip was not successful. He was discharged to home on Friday. He seems to have been fine until tonight. Post-surgical pain to left hip Pain Score (Numeric/FACES): 6 - Related Data Allergies Allergy/AdvReac Type Severity Reaction Status Date / Time [id number] Reductase Allergy Other Verified 10/05/19 03:54 Inhibitor acetaminophen AdvReac Blurred Verified 10/05/19 03:54 [From Darvocet-N 100] Vision NSAIDS (Non-Steroidal AdvReac Renal Verified 10/05/19 03:54 Anti-Inflamma Failure propoxyphene napsylate AdvReac Blurred Verified 10/05/19 03:54 [From Darvocet-N 100] Vision Home Meds: Home Meds Opium Tincture 6 mg PO TIDAC 04/03/13 [History] traZODone 100 - 200 mg PO BEDTIME PRN 04/03/13 [History] Nitroglycerin [Nitrostat] 0.4 mg SL Q5M PRN 10/25/15 [History] ALPRAZolam [Alprazolam] 0.25 - 0.5 mg PO Q8H PRN 06/19/16 [History] Cyanocobalamin (Vitamin B-12) [Cyanocobalamin Injection] 1,000 mcg IM Q14D 06/19/17 [History] Gabapentin [Neurontin] 100 mg PO BEDTIME 09/01/18 [History] Sodium Bicarbonate 650 mg PO BID 09/01/18 [History] Ascorbate Calcium [Vitamin C] 500 mg PO DAILY 04/13/19 [History] Aspirin [Halfprin] 81 mg PO DAILY 04/13/19 [History] Calcium Citrate 0 mg PO DAILY 04/13/19 [History] Cholecalciferol (Vitamin D3) [Vitamin D3] 5,000 unit PO DAILY 04/13/19 [History] Cyproheptadine HCl 2 mg PO BID 04/13/19 [History] Lidocaine/Prilocaine [EMLA Crm] 1 applic TOP DAILY PRN 04/13/19 [History] Potassium Chloride [Klor-Con M20] 40 meq PO BID 04/13/19 [History] traMADol [Ultram] 50 mg PO DAILY PRN 04/13/19 [History] Ciprofloxacin HCl 250 mg PO BID 7 Days #14 tablet 10/05/19 [Rx] Past Medical History HEENT History: Reports: Allergic Rhinitis, Cataract, Other (See Below) Other HEENT History: astigmatism Cardiovascular History: Reports: CAD, High Cholesterol, Other (See Below) Other Cardiovascular History: superior vena cava obstruction Respiratory History: Reports: COPD, Other (See Below) Other Respiratory History: nocturnal hypoxemia, lung mass Gastrointestinal History: Reports: Chronic Diarrhea, GERD, Other (See Below) Other Gastrointestinal History: ulcertive colitis, malabsorption Genitourinary History: Reports: Prostate Disorder, Other (See Below) Other Genitourinary History: CKD stage 4, neurogenic bladder Musculoskeletal History: Reports: Back Pain, Chronic, Fracture, Osteoarthritis, Other (See Below) Other Musculoskeletal History: ankylosing spondylitis, restless leg syndrome Neurological History: Reports: None Psychiatric History: Reports: Anxiety, Depression, Other (See Below) Other Psychiatric History: insomnia Endocrine/Metabolic History: Reports: Other (See Below) Other Endocrine/Metabolic History: hypomagnesemia, hypokalemia, B-12 deficiency Dermatologic History: Reports: None - Infectious Disease History Infectious Disease History: Reports: None - Past Surgical History Cardiovascular Surgical History: Reports: Coronary Artery Stent Respiratory Surgical History: Reports: None GI Surgical History: Reports: Other (See Below) Other GI Surgeries/Procedures: ileostomy Male Surgical History: Reports: TURP-Transurethral Resection of Prostate Endocrine Surgical History: Reports: None Musculoskeletal Surgical History: Reports: Hip Replacement, Knee Replacement, Shoulder Surgery Social & Family History - Family History HEENT: Reports: None Cardiac: Reports: Heart Failure Musculoskeletal: Reports: None Neurological: Reports: None Psychiatric: Reports: None Endocrine/Metabolic: Reports: None Hematologic: Reports: None - Caffeine Use Caffeine Use: Reports: Coffee Review of Systems - Review of Systems Review Of Systems: See Below Constitutional: Reports: Fever Eyes: Reports: No Symptoms Ears: Reports: No Symptoms Nose: Reports: No Symptoms Mouth/Throat: Reports: No Symptoms Respiratory: Reports: No Symptoms Cardiovascular: Reports: No Symptoms GI/Abdominal: Reports: No Symptoms Genitourinary: Reports: Dysuria Musculoskeletal: Reports: No Symptoms Skin: Reports: No Symptoms Neurological: Reports: Confusion Psychiatric: Reports: No Symptoms ED EXAM, GENERAL - Physical Exam Exam: See Below General Appearance: Alert, WD/WN (Elderly male.), No Apparent Distress Ears: Normal External Exam, Hearing Grossly Normal, Normal TMs Nose: Normal Inspection, Normal Mucosa Throat/Mouth: Normal Inspection, Normal Lips, Normal Voice, No Airway Compromise Head: Atraumatic, Normocephalic Neck: Normal Inspection, Supple Respiratory/Chest: No Respiratory Distress, Lungs Clear, Normal Breath Sounds, Chest Non-Tender Cardiovascular: Normal Peripheral Pulses, Regular Rate, Rhythm, No Murmur GI/Abdominal: Normal Bowel Sounds, Soft, Non-Tender, No Distention (Male) Exam: Deferred Rectal (Males) Exam: Deferred Back Exam: Normal Inspection Extremities: Other (Aquacell dressing intact to left hip surgical incision.) Neurological: Alert, Oriented, CN II-XII Intact Psychiatric: Normal Affect Skin Exam: Dry, Intact, Normal Color, Increased Warmth Lymphatic: No Adenopathy Course - Vital Signs Text/Narrative:: The patient was seen by the HAND WASHER. Labs ordered. He was given ibuprofen 400mg po x1 for the fever and Oxycodone 5mg po x 1 for left hip pain. 0500 Labs reviewed. Will treat for UTI. Ceftriaxone 1 gm IVPB ordered along with NS 500ml IV. 0545 Patient feeling better, fever decreasing. Will send home with [facility] for renal dosing. This should cover him for the UTI and the pleural effusion. Patient and his were given discharge instructions and he left the ER in s table condition. Post Discharge: Discussed this visit with the patient's PCP, Dr Juliana Coleman who agrees with plan of care. She will see the patient this week for follow up. Last Recorded V/S: Last Vital Signs Temp 38.7 C H 10/05/19 04:27 Pulse 93 10/05/19 04:30 Resp 24 H 10/05/19 04:30 BP 121/54 L 10/05/19 04:30 Pulse Ox 94 L 10/05/19 04:30 - Orders/Labs/Meds Orders: Active Orders 24 hr Category Date Time Status CULTURE BLOOD [BC] Stat Lab 10/05/19 03:42 Received CULTURE BLOOD [BC] Stat Lab 10/05/19 04:21 Received CULTURE URINE [RM] Stat Lab 10/05/19 04:42 Received Blood Culture x2 Reflex Set [OM.PC] Stat Oth 10/05/19 04:02 Ordered Saline Lock Insert [OM.PC] Stat Oth 10/05/19 04:02 Ordered Labs: Laboratory Tests 10/05/19 10/05/19 10/05/19 Range/Units 03:42 03:42 03:42 WBC 16.1 H (4.0-10.0) x10^3/uL RBC 3.18 L (4.5-6.0) x10^6/uL Hgb 10.4 L (14.0-18.0) g/dL Hct 31.3 L (40.0-52.0) % MCV 98.4 H D (78.0-93.0) fL MCH 32.7 H (26.0-32.0) pg MCHC 33.2 (32.0-36.0) g/dL RDW Coeff of Kaleb 12.9 (10.0-15.0) % Plt Count 151 (130-400) x10^3/uL Neut % (Auto) 90.1 H (50.0-80.0) % Lymph % (Auto) 1.7 L (25.0-50.0) % [place] % (Auto) 7.8 (2.0-11.0) % Eos % (Auto) 0.3 (0.0-4.0) % Baso % (Auto) 0.1 L (0.2-1.2) % Sodium 134 L (136-145) mmol/L Potassium 4.2 (3.5-5.1) mmol/L Chloride 97 L (98-107) mmol/L Carbon Dioxide 27 (21-32) mmol/L Anion Gap 14.2 (10-20) mmol/L BUN 38 H (7-18) mg/dL Creatinine 3.0 H (0.70-1.30) mg/dL Est Cr Clr Drug Dosing 24.57 mL/min Estimated GFR (MDRD) 21 Glucose 119 H (74-106) mg/dL Lactic Acid 0.8 (0.4-2.0) mmol/L Calcium 8.8 (8.5-10.1) mg/dL Corrected Calcium 9.60 (8.5-10.1) mg/dL Total Bilirubin 1.4 H (0.2-1.0) mg/dL AST 18 (15-37) U/L ALT 10 L (16-63) U/L Alkaline Phosphatase 88 (46-116) U/L Total Protein 6.9 (6.4-8.2) g/dL Albumin 3.0 L (3.4-5.0) g/dL Globulin 3.9 Albumin/Globulin Ratio 0.77 Urine Color (YELLOW) Urine Appearance (CLEAR) Urine pH (5.0-8.0) Ur Specific [place] Urine Protein (NEGATIVE) mg/dL Urine Glucose (UA) (NEGATIVE) mg/dL Urine Ketones (NEGATIVE) mg/dL Urine Occult Blood (NEGATIVE) Urine Nitrite (NEGATIVE) Urine Bilirubin (NEGATIVE) Urine Urobilinogen (0.2) EU/dL Ur Leukocyte Esterase (NEGATIVE) Urine RBC (NOT SEEN) /HPF Urine WBC (NOT SEEN) /HPF Ur Squamous Epith Cells (NEGATIVE) /HPF Urine Bacteria (NEGATIVE) /HPF Urine Mucus (NEGATIVE) /LPF 10/05/19 Range/Units 04:42 WBC (4.0-10.0) x10^3/uL RBC (4.5-6.0) x10^6/uL Hgb (14.0-18.0) g/dL Hct (40.0-52.0) % MCV (78.0-93.0) fL MCH (26.0-32.0) pg MCHC (32.0-36.0) g/dL RDW Coeff of Kaleb (10.0-15.0) % Plt Count (130-400) x10^3/uL Neut % (Auto) (50.0-80.0) % Lymph % (Auto) (25.0-50.0) % [place] % (Auto) (2.0-11.0) % Eos % (Auto) (0.0-4.0) % Baso % (Auto) (0.2-1.2) % Sodium (136-145) mmol/L Potassium (3.5-5.1) mmol/L Chloride (98-107) mmol/L Carbon Dioxide (21-32) mmol/L Anion Gap (10-20) mmol/L BUN (7-18) mg/dL Creatinine (0.70-1.30) mg/dL Est Cr Clr Drug Dosing mL/min Estimated GFR (MDRD) Glucose (74-106) mg/dL Lactic Acid (0.4-2.0) mmol/L Calcium (8.5-10.1) mg/dL Corrected Calcium (8.5-10.1) mg/dL Total Bilirubin (0.2-1.0) mg/dL AST (15-37) U/L ALT (16-63) U/L Alkaline Phosphatase (46-116) U/L Total Protein (6.4-8.2) g/dL Albumin (3.4-5.0) g/dL Globulin Albumin/Globulin Ratio Urine Color Yellow (YELLOW) Urine Appearance Cloudy H (CLEAR) Urine pH 5.5 (5.0-8.0) Ur Specific [place] 1.020 Urine Protein 100 H (NEGATIVE) mg/dL Urine Glucose (UA) Negative (NEGATIVE) mg/dL Urine Ketones Negative (NEGATIVE) mg/dL Urine Occult Blood Trace-intact H (NEGATIVE) Urine Nitrite Negative (NEGATIVE) Urine Bilirubin Negative (NEGATIVE) Urine Urobilinogen 0.2 (0.2) EU/dL Ur Leukocyte Esterase Moderate H (NEGATIVE) Urine RBC 5-10 H (NOT SEEN) /HPF Urine WBC 20-30 H (NOT SEEN) /HPF Ur Squamous Epith Cells Occasional H (NEGATIVE) /HPF Urine Bacteria Occasional H (NEGATIVE) /HPF Urine Mucus Occasional H (NEGATIVE) /LPF Meds: Medications Discontinued Medications Generic Name Dose Route Start Last Admin Trade Name Freq PRN Reason Stop Dose Admin Acetaminophen 650 mg 10/05/19 04:12 10/05/19 04:23 Tylenol PO 10/05/19 04:13 Not Given NOW ONE Ceftriaxone Sodium 1 gm 10/05/19 05:08 10/05/19 05:17 Rocephin IVPUSH 10/05/19 05:09 1 gm STAT ONE Administration Sodium Chloride 500 mls @ 500 mls/hr 10/05/19 05:10 10/05/19 05:00 Normal Saline IV 10/05/19 06:09 500 mls/hr ONETIME ONE Administration Ibuprofen 400 mg 10/05/19 04:17 10/05/19 04:27 Motrin PO 10/05/19 04:18 400 mg NOW STA Administration Oxycodone HCl 5 mg 10/05/19 04:24 10/05/19 04:27 Oxycodone PO 10/05/19 04:25 5 mg ONETIME STA Administration Sodium Chloride 10 ml 10/05/19 03:57 Saline Flush FLUSH ASDIRECTED PRN Keep Vein Open - Radiology Interpretation Free Text/Narrative:: XR Left Hip=no acute findings, hip hardware in place XR Chest 1V= note RLL pleural effusion possible increasing, but known hx (see final report) Departure - Departure Time of Disposition: 05:55 Disposition: Home, Self-Care 01 Condition: Good Clinical Impression: UTI (urinary tract infection), CKD (chronic kidney disease), stage IV, Pleural effusion - Discharge Information *PRESCRIPTION DRUG MONITORING PROGRAM REVIEWED*: Not Applicable *COPY OF PRESCRIPTION DRUG MONITORING REPORT IN PATIENT RENAY: Not Applicable Prescriptions: Ciprofloxacin HCl 250 mg PO BID 7 Days #14 tablet Instructions: Urinary Tract Infection, Adult, Chronic Kidney Disease, Adult Referrals: Juliana Coleman DO [Primary Care Provider] - Forms: ED Department Discharge Additional Instructions: -Cipro 250mg oral twice daily x 7 days #14(Rx) -Continue post op pain meds as needed -Monitor fever -If symptoms persist and please return to the ER or call your PCP -Follow up with Dr Juliana Coleman in 1 week for recheck Sepsis Event Note (ED) - Focused Exam Vital Signs: Vital Signs Pulse Resp BP Pulse Ox 10/05/19 04:30 93 24 H 121/54 L 94 L - My Orders Last 24 Hours: My Active Orders 10/05/19 03:42 CULTURE BLOOD [BC] Stat 10/05/19 04:02 Blood Culture x2 Reflex Set [OM.PC] Stat Saline Lock Insert [OM.PC] Stat 10/05/19 04:21 CULTURE BLOOD [BC] Stat 10/05/19 04:42 CULTURE URINE [RM] Stat - Assessment/Plan Last 24 Hours: My Active Orders 10/05/19 03:42 CULTURE BLOOD [BC] Stat 10/05/19 04:02 Blood Culture x2 Reflex Set [OM.PC] Stat Saline Lock Insert [OM.PC] Stat 10/05/19 04:21 CULTURE BLOOD [BC] Stat 10/05/19 04:42 CULTURE URINE [RM] Stat
[2019-10-05] MEDS ORDERED: Acetaminophen 325 MG Tab PO ONE (04:12)
[2019-10-05] MEDS ORDERED: Ibuprofen 200 MG Tab PO STA (04:17)
[2019-10-05 04:23] LABS: ANION GAP 14.2 mmol/L (10-20)
[2019-10-05] MEDS ORDERED: oxyCODONE 5 MG Tab PO STA (04:24)
[2019-10-05] MEDS ORDERED: cefTRIAXone 1 GM Vial IVPUSH ONE (05:08)
[2019-10-05 05:10] VITALS: BP 121/54; PULSE 93
[2019-10-05] MEDS ORDERED: Sodium Chloride 0.9% 500 ML IV ONE (05:10)
--- NOTE | 2019-10-05 09:40 | CR ---
[id number] RAD/RAD Chest PA or AP 1V EXAM: RAD Chest PA or AP 1V INDICATION: FEVER, S/P LEFT HIP REVISION COMPARISON: July 27, 2019. DISCUSSION: Cardiomediastinal silhouette is normal in size and contour. Hazy opacification overlying the right lung base likely represents a small to moderate pleural effusion, increased. No pneumothorax. Pulmonary hyperinflation. IMPRESSION: Increasing small to moderate right pleural effusion. Kelby Hobbs DO 10/05/19 0937 Thank you for allowing us to participate in the care of your patient.
--- NOTE | 2019-10-05 09:40 | CR ---
[id number] RAD/RAD Hip Left 2-3V EXAM: 2 VIEWS LEFT HIP. INDICATION: FEVER, S/P LEFT HIP REVISION COMPARISON: None. DISCUSSION: Postsurgical changes following total left hip arthroplasty. No evidence of acute hardware failure or loosening. The prosthesis remains in articulatory alignment. No acute fracture or dislocation. IMPRESSION: 1. No acute osseous abnormalities. Kelby Hobbs DO 10/05/19 0937 Thank you for allowing us to participate in the care of your patient.
== END 2019-10-05 06:01 | disposition home or self-care (01) ==
LOC: VM.ED 03:22 → SUPCPDRO 03:22 → VM.ED 06:01
DX: N39.0 Urinary tract infection, site not specified (principal); N18.4 Chronic kidney disease, stage 4 (severe); J90 Pleural effusion, not elsewhere classified; I25.10 Atherosclerotic heart disease of native coronary artery without angina pectoris; J44.9 Chronic obstructive pulmonary disease, unspecified; K21.9 Gastro-esophageal reflux disease without esophagitis; Z95.5 Presence of coronary angioplasty implant and graft; Z88.8 Allergy status to other drugs, medicaments and biological substances; Z88.6 Allergy status to analgesic agent; Z79.82 Long term (current) use of aspirin; Z79.899 Other long term (current) drug therapy
CPT/HCPCS: 36415; 71045; 80053; 81001; 83605; 85025; 87040; 87086; 87088; 87186; 94760; 96361; 96374; 99284; 99285-25; A9270-GY; J0696; J7040

== ENCOUNTER 2019-11-01 12:34 | Observation (INO) | payer MEDICARE, BC ==
--- NOTE | 2019-11-01 14:36 | CR ---
[id number] RAD/RAD Chest PA And Lateral EXAM: FRONTAL AND LATERAL CHEST INDICATION: THORACENTESIS. COMPARISON: October 05, 2019. DISCUSSION: Decreased right pleural fluid with interval development of a right hydropneumothorax with a small volume of pleural fluid and pneumothorax measuring up to 31 mm laterally on the right lung base and 23 mm and the apex. Hyperinflation is consistent with underlying COPD. Minimal left pleural effusion. Volume loss in both lung bases with no definite infiltrates. Results called at time dictation. IMPRESSION: 1. Interval development of a small to moderate hydropneumothorax. The pleural fluid component has decreased relative to October 05, 2019, but the pneumothorax component is new. Eric Robison MD 11/01/19 6416 Thank you for allowing us to participate in the care of your patient.
[2019-11-01 15:40] VITALS: BP 138/56; PULSE 66
--- NOTE | 2019-11-01 17:07 | CR ---
[id number] RAD/RAD Chest PA And Lateral EXAM: FRONTAL AND LATERAL CHEST INDICATION: Pneumothorax. COMPARISON: November 01, 2019. DISCUSSION: There is a persistent right hydropneumothorax. The fluid component is stable and the pneumothorax appears slightly increased with a basilar component now measuring about 35 mm relative to the previous of 31 mm. The apical component is not as well-defined as on the prior study, but measures about 26 mm relative to the previous of 23 mm. Development of mild chest wall emphysema along the lateral aspect of the lower chest. Underlying emphysema. Increased volume loss in the right lung base. Borderline heart size. Trace left effusion. IMPRESSION: 1. Persistent right hydropneumothorax. Stable fluid component and mildly increased pneumothorax component. Eric Robison MD 11/01/19 3635 Thank you for allowing us to participate in the care of your patient.
--- NOTE | 2019-11-02 08:46 | OR ---
Dictation #1 on a 74-year-old seen today for a planned therapeutic thoracentesis for recurrent pleural effusion. The patient does have a history of lung cancer that was treated last year with radiation. He is not having any ascites. He has not had heart failure. The patient has had more of a cough and sputum. He has not had any fever or chills. Otherwise, after risks and goals of the procedure were discussed with the patient, he elected to proceed. We identified the patient and the right procedure and location by ultrasound guidance. We found the largest pocket of fluid in the right lower rib area. Then we cleansed the area with ChloraPrep and anesthetized it with 2% lidocaine with epinephrine. I was able to get some fluid back with the anesthetizing needle. I then used a scalpel to open a larger area of skin and placed the trocar device with the catheter into the pleural space until I was able to withdraw fluid. Unfortunately, when I got the initial flashback, I advanced the catheter but was not in the cavity and had to subsequently withdraw the device and make another attempt, which we were able to get into the cavity and kristi fluid easily drained from the lungs and into the collection bottles. When we got to about 1500, we just collected a little bit further specimen for cytology and Gram stain and cell count. At this point, the patient started coughing and then the catheter was removed. He did have some chest discomfort. It was felt to be due to the re-expansion of the lung, and he was coughing some. We had already planned to do a postprocedure thoracentesis to check on the volume of fluid. The patient by the time he went down for x-ray had reported he was completely resolved with his symptoms and a small pneumothorax, 22 mm in the apex, was found and also around 31 mm in the base, which potentially was from an incomplete re-expansion of the lung. The patient was then placed on 4 L of oxygen. He actually wanted to go home. He is kind of upset about staying. He did agree to stay for a repeat x-ray at around 5 p.m. We even moved it up to about 4:30, and it did show a slight increase in the pneumothorax, but the patient said he did not care, he was going home, he has been in the hospital enough. He is also on anticoagulation with Eliquis. He was already given the okay to restart that. Coincidently, he did report how he had a pneumothorax years ago, and I looked in his records in 2016 from a biopsy of a lung nodule, and it was probably around the same amount of pneumothorax at that time. The patient was advised not to fly. Reported to him, ideally, he would have oxygen at home, but he does not. He agreed to come back to the clinic for repeat chest x-ray tomorrow. He will seek medical care immediately if he has any chest pain or worsening shortness of breath. His Gram stain did not show any organisms, just white blood cells. Cytologies and cell count are pending. MKA: 11/01/2019 18:03:37 MODL: 11/01/2019 18:49:19 /[id number]
--- NOTE | 2019-11-12 18:36 | HP ---
CHIEF COMPLAINT: Right-sided pleural effusion. HISTORY OF PRESENT ILLNESS: This is a 74-year-old male who came in today for a planned right-sided thoracentesis, but unfortunately had around a 2 to 3 cm pneumothorax due to the procedure. The patient is in no respiratory distress, but was kept on oxygen with plans for a repeat chest x-ray later today. He has been coughing some and having productive sputum. No fever. No chills. He has a history of lung cancer and completed radiation last year. He had a previous pleural effusion drained back in July at [facility]. He had a pneumothorax from a lung biopsy on that same side in the past. ALLERGIES: NSAIDs, Darvocet, and statins. MEDICATIONS: List is reviewed. He will not be getting medications here. He is on Eliquis, but that was on hold for his procedure. 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 PAST SURGICAL HISTORY: He has had the total knee bilaterally. He has had a total hip with revision in September. He has had a TURP. Tonsils and adenoids. He has had a heart stent when he was around age 49. He has had colon surgeries with colostomy and ileostomy, and also previous shoulder arthroscopy on both sides. REVIEW OF SYSTEMS: General: He has had no weight changes. Generally, he does feel fatigued. HEENT: No sore throat. No trouble swallowing. Cardiac: No chest pain. No palpitations. Respiratory: He has had cough. He has been short of breath. Otherwise, all systems reviewed and found to be negative unless otherwise stated. PHYSICAL EXAMINATION: Vital Signs: On this admission, his temperature is 97.9, pulse 66, blood pressure 138/56, respiratory rate 18, O2 of 100% on 2 L. General: He is in no acute distress. Heart: Regular rate and rhythm. Lungs: Sounds are clear to auscultation bilaterally without crackles or wheezes. Abdomen: Nondistended, nontender. Ostomy in place. Extremities: Warm and dry. No edema. Mental Status: Alert and orientated x3. ASSESSMENT AND PLAN: 1. Pneumothorax, iatrogenic around 2 to 3 mm. Repeat x-ray planned after he is on oxygen. Actually, the patient was advised to spend the night for observation, but he declined. He actually left AMA. 2. Recurrent pleural effusion. Studies have been sent off. If it reoccurs, he will likely need to follow up with [facility] for a possible PleurX cath. 3. History of lung cancer, felt to be in remission. 4. Chronic kidney disease stage 4. 5. High output from his ostomy. He is on tincture of opium. The plan; the patient will be admitted for observation for oxygen. Repeat chest x-ray. MKA: 11/12/2019 11:56:14 MODL: 11/12/2019 18:21:35 /[id number]
== END 2019-11-01 17:13 | disposition home or self-care (01) ==
LOC: VM.MS 12:34 → VM.ACU 12:34 → VM.MS 15:08
PROVIDERS: ADMIT Internal Medicine; ATTEND Internal Medicine
DX: N19 Unspecified kidney failure (principal); E53.8 Deficiency of other specified B group vitamins; E87.6 Hypokalemia
CPT/HCPCS: 32554; 71046; 82042; 87070; 87205; 88112; 88305; 89051; 94760; G0378; 36415; 80069; 83735

== ENCOUNTER 2021-01-22 15:46 | Inpatient (IN) | payer MEDICARE, BC ==
--- NOTE | 2021-01-22 16:56 | EDM.PDOC ---
ED HPI GENERAL MEDICAL PROBLEM - General Chief Complaint: General Stated Complaint: CONFUSION WEAKNESS Time Seen by Provider: 01/22/21 15:50 Source of Information: Reports: Patient, Family History Limitations: Reports: No Limitations - History of Present Illness INITIAL COMMENTS - FREE TEXT/NARRATIVE: Patient presents ER today with his and daughter in regards to last couple days of intermittent episodes of confusion generalized weakness and decreased appetite. Patient was just discharged from the hospital Friday after a 2-day admission secondary to urinary tract infection. His antibiotics were changed secondary to culture and sensitivity coming back. Patient states he finished his last antibiotic yesterday. States overall he has been doing okay but per his family he does seems a little off not answering questions appropriately and being weak all over. He also states he has had a decreased appetite but he has been taking some food and fluids. In regards to the swelling of his left arm since he has had a AV fistula put in and afterwards he declined dialysis he has had a significant amount of swelling but he has seen vascular for this and they state it is all secondary edema. He just saw vascular on Friday and was told it was fine the patient and the family actually stated looks better today than it did the last couple of days. He denies any coldness or loss of feeling to the extremity he has had ultrasounds and a CT negative DVT of the extremity He has no other complaints at this time Duration: Day(s): Associated Symptoms: Reports: Confusion, Cough. Denies: Chest Pain, Diaphoresis, Fever/Chills, Loss of Appetite, Malaise, Nausea/Vomiting, Shortness of Breath, Syncope, Weakness - Related Data Allergies Allergy/AdvReac Type Severity Reaction Status Date / Time Xcjlmnh-TWA-GuX Reductase Allergy Other Verified 01/22/21 17:21 Inhibitor [Yqurerj-Xxn-Avc Reductase Inhibitor] acetaminophen AdvReac Blurred Verified 01/22/21 17:21 [From Darvocet-N 100] Vision NSAIDS (Non-Steroidal AdvReac Renal Verified 01/22/21 17:21 Anti-Inflamma Failure propoxyphene napsylate AdvReac Blurred Verified 01/22/21 17:21 [From Darvocet-N 100] Vision Home Meds: Home Meds Opium Tincture 6 mg PO TIDAC 04/03/13 [History] Nitroglycerin [Nitrostat] 0.4 mg SL Q5M PRN 10/25/15 [History] Cyanocobalamin (Vitamin B-12) [Cyanocobalamin Injection] 1,000 mcg IM Q7D 06/19/17 [History] Gabapentin [Neurontin] 100 mg PO TID 09/01/18 [History] Sodium Bicarbonate 1,300 mg PO BID 09/01/18 [History] Potassium Chloride [Klor-Con M20] 20 meq PO BID 04/13/19 [History] Acetaminophen 500 mg PO Q6H PRN 11/01/19 [History] Calcium Carbonate/Vitamin D3 [Calcium 600 + Vit D 200] 1 tab PO BID 11/01/19 [History] Magnesium Chloride [Slow-Mag] 1 tab PO BID 11/01/19 [History] traZODone HCl [Trazodone HCl] 100 mg PO BEDTIME 11/01/19 [History] Warfarin Sodium [Jantoven] 5 mg PO ASDIRECTED 03/31/20 [History] ALPRAZolam [Alprazolam] 0.5 mg PO Q8H PRN 01/16/21 [History] Cholecalciferol (Vitamin D3) [Vitamin D3] 2,000 unit PO DAILY 01/16/21 [History] Cyclobenzaprine [Flexeril] 5 mg PO BEDTIME PRN 01/16/21 [History] Ketoconazole [Nizoral 2% Crm] 1 applic TOP DAILY 01/16/21 [History] Loratadine [Claritin] 10 mg PO DAILY 01/16/21 [History] Naloxone HCl [Narcan] 4 mg NS ASDIRECTED PRN 01/16/21 [History] Non-Formulary Medication [NF Drug] 10 ml PO QID 01/16/21 [History] Triamcinolone Acetonide [Kenalog 0.1% Crm] 1 applic TOP BID 01/16/21 [History] hydrOXYzine HCL [Hydroxyzine HCl] 25 mg PO QID PRN 01/16/21 [History] predniSONE 5 mg PO DAILY 01/16/21 [History] Past Medical History HEENT History: Reports: Allergic Rhinitis, Cataract, Other (See Below) Other HEENT History: astigmatism Cardiovascular History: Reports: CAD, High Cholesterol, Other (See Below) Other Cardiovascular History: superior vena cava obstruction. HX OF DVT Respiratory History: Reports: COPD, Other (See Below) Other Respiratory History: nocturnal hypoxemia, lung mass Gastrointestinal History: Reports: Chronic Diarrhea, GERD, Other (See Below) Other Gastrointestinal History: ulcertive colitis, malabsorption Genitourinary History: Reports: BPH, Prostate Disorder, Other (See Below) Other Genitourinary History: CKD stage 4, neurogenic bladder Musculoskeletal History: Reports: Back Pain, Chronic, Fracture, Osteoarthritis, Other (See Below) Other Musculoskeletal History: ankylosing spondylitis, restless leg syndrome Neurological History: Reports: None Psychiatric History: Reports: Anxiety, Depression, Other (See Below) Other Psychiatric History: insomnia Endocrine/Metabolic History: Reports: Other (See Below) Other Endocrine/Metabolic History: hypomagnesemia, hypokalemia, B-12 deficiency,hypertriglyceridemia Dermatologic History: Reports: None - Infectious Disease History Infectious Disease History: Reports: None - Past Surgical History Cardiovascular Surgical History: Reports: Coronary Artery Stent Respiratory Surgical History: Reports: None GI Surgical History: Reports: Other (See Below) Other GI Surgeries/Procedures: ileostomy Male Surgical History: Reports: TURP-Transurethral Resection of Prostate Endocrine Surgical History: Reports: None Musculoskeletal Surgical History: Reports: Hip Replacement, Knee Replacement, Shoulder Surgery Other Musculoskeletal Surgeries/Procedures:: Bilateral Medial branch block Social & Family History - Family History HEENT: Reports: None Cardiac: Reports: Heart Failure Musculoskeletal: Reports: None Neurological: Reports: None Psychiatric: Reports: None Endocrine/Metabolic: Reports: None Hematologic: Reports: None - Caffeine Use Caffeine Use: Reports: Coffee ED ROS GENERAL - Review of Systems Review Of Systems: See Below Constitutional: Reports: Fatigue. Denies: Fever, Chills, Malaise, Weakness HEENT: Reports: No Symptoms Respiratory: Denies: Shortness of Breath, Cough Cardiovascular: Denies: Chest Pain, Edema, Syncope Endocrine: Reports: Fatigue GI/Abdominal: Denies: Abdominal Pain, Black Stool, Bloody Stool, Constipation, Diarrhea, Flatus, Nausea : Reports: No Symptoms Musculoskeletal: Reports: No Symptoms Skin: Reports: No Symptoms Neurological: Reports: Confusion. Denies: Dizziness, Headache, Weakness Psychiatric: Reports: No Symptoms Hematologic/Lymphatic: Reports: No Symptoms. Denies: Easy Bleeding, Easy Bruising Immunologic: Reports: No Symptoms - Physical Exam Exam: See Below Exam Limited By: No Limitations General Appearance: Alert, WD/WN, No Apparent Distress, Other (Patient is alert and oriented x3 answers all questions appropriately follows all commands appropriately) Eye Exam: Bilateral Eye: EOMI, Normal Inspection, PERRL Ears: Normal External Exam, Normal Canal, Hearing Grossly Normal, Normal TMs Nose: Normal Inspection, Normal Mucosa, No Blood Throat/Mouth: Normal Inspection, Normal Lips, Normal Teeth, Normal Gums, Normal Oropharynx, Normal Voice, No Airway Compromise Head Exam: Atraumatic, Normocephalic Neck: Normal Inspection, Supple, Non-Tender, Full Range of Motion Respiratory/Chest: No Respiratory Distress, Lungs Clear, Normal Breath Sounds, No Accessory Muscle Use, Chest Non-Tender Cardiovascular: Normal Peripheral Pulses, Regular Rate, Rhythm, No Edema, No Gallop, No JVD, No Murmur, No Rub GI/Abdominal: Normal Bowel Sounds, Soft, Non-Tender, No Organomegaly, No Distention, Other (Noted intact ileostomy). 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 No: No Pedal Edema Psychiatric: Normal Affect, Normal Mood Skin Exam: Warm, Dry, Intact, Normal Color, No Rash #1 Interpretation EKG Date: 01/22/21 Time: 16:20 Rhythm: NSR [place]: Normal P-Wave: Present QRS: Normal ST-T: Normal QT: Normal Course - Vital Signs Text/Narrative:: WBC within normal limits H&H within normal limits BUN and creatinine today at 38/2.8 they have been higher in the past. Urinalysis negative nitrites positive leukocytes moderate Chest x-ray noted pleural effusion on the left Impression from radiology is slight increase of left pleural effusion as well as bibasilar parenchymal opacifications I spoke with primary care provider Dr. Juliana Coleman in regards to the patient she is okay with admission for failed outpatient antibiotic treatment for urinary tract infection. After speaking with the patient about being admitted and only wants to go home he understands risk versus benefits and states he has not been admitted. He is okay with being treated with outpatient Rocephin IM for a course After talking with his and his daughter the patient at this time is okay with admission we spoke with Dr. Coleman she is okay with having the patient admitted 183 Last Recorded V/S: Last Vital Signs Temp 37.1 C 01/22/21 15:50 Pulse 78 01/22/21 18:06 Resp 16 01/22/21 18:06 BP 168/72 H 01/22/21 18:06 Pulse Ox 94 L 01/22/21 18:06 - Orders/Labs/Meds Labs: Laboratory Tests 01/22/21 01/22/21 01/22/21 Range/Units 16:45 16:45 16:45 WBC 6.0 (4.0-10.0) x10^3/uL RBC 4.00 L (4.5-6.0) x10^6/uL Hgb 13.4 L D (14.0-18.0) g/dL Hct 39.3 L (40.0-52.0) % MCV 98.3 H (78.0-93.0) fL MCH 33.5 H (26.0-32.0) pg MCHC 34.1 (32.0-36.0) g/dL RDW Coeff of Kaleb 12.4 (10.0-15.0) % Plt Count 193 (130-400) x10^3/uL Immature Gran % (Auto) 1.20 H (0.00-0.43) % Neut % (Auto) 85.0 H (50.0-80.0) % Lymph % (Auto) 5.3 L (25.0-50.0) % Flagler % (Auto) 7.3 (2.0-11.0) % Eos % (Auto) 0.7 (0.0-4.0) % Baso % (Auto) 0.5 (0.2-1.2) % Neut # (Auto) 5.1 (1.8-7.7) x10^3/uL Lymph # (Auto) 0.3 L (1.0-4.8) x10^3/uL Flagler # (Auto) 0.4 (0.0-0.8) x10^3/uL Eos # (Auto) 0.0 (0.0-0.5) x10^3/uL Baso # (Auto) 0.0 (0.0-0.2) x10^3/uL Immature Gran # (Auto) 0.07 (0.00-0.07) x10^3/uL Sodium 136 (136-145) mmol/L Potassium 4.1 (3.5-5.1) mmol/L Chloride 95 L (98-107) mmol/L Carbon Dioxide 30 (21-32) mmol/L Anion Gap 15.1 H (5-15) mmol/L BUN 38 H (7-18) mg/dL Creatinine 2.8 H (0.70-1.30) mg/dL Est Cr Clr Drug Dosing TNP Estimated GFR (MDRD) 22 Glucose 122 H (70-99) mg/dL Lactic Acid 1.4 (0.4-2.0) mmol/L Calcium 9.6 (8.5-10.1) mg/dL Urine Color (YELLOW) Urine Appearance (CLEAR) Urine pH (5.0-8.0) Ur Specific Freeman Urine Protein (NEGATIVE) mg/dL Urine Glucose (UA) (NEGATIVE) mg/dL Urine Ketones (NEGATIVE) mg/dL Urine Occult Blood (NEGATIVE) Urine Nitrite (NEGATIVE) Urine Bilirubin (NEGATIVE) Urine Urobilinogen (0.2) EU/dL Ur Leukocyte Esterase (NEGATIVE) Urine RBC (NOT SEEN) /HPF Urine WBC (NOT SEEN) /HPF Ur Squamous Epith Cells (NOT SEEN) /HPF Urine Bacteria (NOT SEEN) /HPF Urine Mucus (NOT SEEN) /LPF 01/22/21 Range/Units 17:07 WBC (4.0-10.0) x10^3/uL RBC (4.5-6.0) x10^6/uL Hgb (14.0-18.0) g/dL Hct (40.0-52.0) % MCV (78.0-93.0) fL MCH (26.0-32.0) pg MCHC (32.0-36.0) g/dL RDW Coeff of Kaleb (10.0-15.0) % Plt Count (130-400) x10^3/uL Immature Gran % (Auto) (0.00-0.43) % Neut % (Auto) (50.0-80.0) % Lymph % (Auto) (25.0-50.0) % Flagler % (Auto) (2.0-11.0) % Eos % (Auto) (0.0-4.0) % Baso % (Auto) (0.2-1.2) % Neut # (Auto) (1.8-7.7) x10^3/uL Lymph # (Auto) (1.0-4.8) x10^3/uL Flagler # (Auto) (0.0-0.8) x10^3/uL Eos # (Auto) (0.0-0.5) x10^3/uL Baso # (Auto) (0.0-0.2) x10^3/uL Immature Gran # (Auto) (0.00-0.07) x10^3/uL Sodium (136-145) mmol/L Potassium (3.5-5.1) mmol/L Chloride (98-107) mmol/L Carbon Dioxide (21-32) mmol/L Anion Gap (5-15) mmol/L BUN (7-18) mg/dL Creatinine (0.70-1.30) mg/dL Est Cr Clr Drug Dosing Estimated GFR (MDRD) Glucose (70-99) mg/dL Lactic Acid (0.4-2.0) mmol/L Calcium (8.5-10.1) mg/dL Urine Color Yellow (YELLOW) Urine Appearance Cloudy H (CLEAR) Urine pH 7.0 (5.0-8.0) Ur Specific Freeman 1.025 Urine Protein >=300 H (NEGATIVE) mg/dL Urine Glucose (UA) Negative (NEGATIVE) mg/dL Urine Ketones Negative (NEGATIVE) mg/dL Urine Occult Blood Small H (NEGATIVE) Urine Nitrite Negative (NEGATIVE) Urine Bilirubin Negative (NEGATIVE) Urine Urobilinogen 0.2 (0.2) EU/dL Ur Leukocyte Esterase Moderate H (NEGATIVE) Urine RBC 5-10 H (NOT SEEN) /HPF Urine WBC Semi-packed H (NOT SEEN) /HPF Ur Squamous Epith Cells Not seen (NOT SEEN) /HPF Urine Bacteria Occasional H (NOT SEEN) /HPF Urine Mucus Not seen (NOT SEEN) /LPF Meds: Medications Discontinued Medications Generic Name Dose Route Start Last Admin Trade Name Lore PRN Reason Stop Dose Admin Ceftriaxone Sodium 1 gm/ 0 gm 01/22/21 18:10 01/22/21 18:19 Lidocaine HCl 2.1 ml IM 01/22/21 18:11 1 inj ONETIME ONE Administration Departure - Departure Time of Disposition: 18:00 Disposition: Admitted As Inpatient 66 Condition: Good Clinical Impression: UTI (urinary tract infection), Chronic kidney disease, Confusion, Failure of outpatient treatment - Discharge Information Instructions: Chronic Kidney Disease, Adult, [id number] Referrals: Juliana Coleman, [Primary Care Provider] - Forms: ED Department Discharge Additional Instructions: Follow-up with your primary care provider in the next 24 hours Make sure you are drinking plenty of fluids daily I recommend at least 4 to 6 glasses of water or Gatorade You have been given Rocephin intramuscular antibiotic here in the emergency room I would make sure that I took a probiotic or yogurt for the next 3 to 4 days. Your primary care provider will schedule outpatient medication to be given daily as well. Return to the emergency room if anything changes or gets worse Sepsis Event Note (ED) - Focused Exam Vital Signs: Vital Signs Temp Pulse Resp BP Pulse Ox 01/22/21 18:06 78 16 168/72 H 94 L 01/22/21 17:25 74 16 158/70 H 97 01/22/21 15:50 37.1 C 87 16 171/73 H 93 L - Problem List & Annotations (1) UTI (urinary tract infection) SNOMED Code(s): 40413922 Code(s): N39.0 - URINARY TRACT INFECTION, SITE NOT SPECIFIED Status: Acute Current Visit: Yes (2) Chronic kidney disease SNOMED Code(s): 522832480 Code(s): N18.9 - CHRONIC KIDNEY DISEASE, UNSPECIFIED Status: Acute Current Visit: Yes (3) Confusion SNOMED Code(s): 650250502 Code(s): R41.0 - DISORIENTATION, UNSPECIFIED Status: Acute Current Visit: Yes
[2021-01-22 17:14] LABS: CHLORIDE,CL 95 mmol/L (98-107); SODIUM,NA 136 mmol/L (136-145)
[2021-01-22 17:18] LABS: ANION GAP 15.1 mmol/L (5-15)
--- NOTE | 2021-01-22 17:51 | CR ---
[id number] RAD/RAD Chest PA or AP 1V EXAM: RAD Chest PA or AP 1V INDICATION: AMS. COMPARISON: Multiple prior studies most recent being January 15, 2021. DISCUSSION: Cardiomediastinal silhouette is unchanged in size and contour compared to the prior examination. Small bilateral pleural effusions left greater than right. The left pleural effusion appears to have increased slightly when compared to prior. Bibasal parenchymal opacities are also slightly increased. IMPRESSION: Slight increase of left pleural effusion as well as bibasilar parenchymal opacifications. Kelby Hobbs DO 01/22/21 [id number] Thank you for allowing us to participate in the care of your patient.
[2021-01-22] MEDS ORDERED: cefTRIAXone 1 GM, Lidocaine 1% 2.1 ML IM ONE ×2 (18:10)
[2021-01-22] MEDS ORDERED: Nitroglycerin 0.4 MG Tab.SL SL PRN (19:43)
[2021-01-22] MEDS ORDERED: Acetaminophen 500 MG Tab PO PRN (19:43)
[2021-01-22] MEDS ORDERED: Cyclobenzaprine 10 MG Tab PO PRN (19:43)
[2021-01-22] MEDS ORDERED: hydrOXYzine HCl 25 MG Tab PO PRN (19:43)
[2021-01-22] MEDS ORDERED: Warfarin 5 MG Tab PO SCH (19:45)
[2021-01-22] MEDS ORDERED: Non-Formulary Medication 1 Each PO SCH (20:00)
[2021-01-22] MEDS ORDERED: Sodium Chloride 0.9% 10 ML Syringe FLUSH PRN (20:18)
[2021-01-22] MEDS ORDERED: Torsemide 20 MG Tab PO ONE (20:40)
--- NOTE | 2021-01-22 20:56 | HP ---
CHIEF COMPLAINT: Weakness. HISTORY OF PRESENT ILLNESS: This is a 75-year-old male who was admitted and discharged on 01/16 through 01/17 for urinary tract infection that was resistant to his original antibiotic of Augmentin. He did get IV Rocephin while in the hospital and he was susceptible to that. On Friday, he was switched to Cipro and he had pretty good days over the weekend. He actually grew Enterobacter cloacae, but then last night he did not sleep at all. Today, he was very weak, he was confused, he was brought in. His urine continues to be positive. He had no fever, no chills. He denies that he is in pain. He actually says he is doing pretty good with pain right now. He was able to get the epidural steroid injection in his neck. He has a Tubigrip that he is able to use on the left arm. He has been short of breath. He has a pleural effusion on his chest x- ray, which is slightly more pronounced than last visit. The patient's and daughter have been caring for him at home. He has a Valenzuela catheter that was left in due to retention. He has an ostomy, but yet they are still up with him like 5 times at night. ALLERGIES: Include statin drugs, Tylenol, Darvocet, NSAIDs. MEDICATION LIST: He has multiple medication lists, which are reviewed and listed in his chart. 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; history of left arm edema from a fistula; hyperlipidemia; history of lung cancer, treated, felt to be in remission, adenocarcinoma; neurogenic bladder; previous surgery for the prostate, but with recurrent symptoms requiring straight catheterization; restless legs syndrome; chronic opioids; chronic back pain; moderate COPD; insomnia; secondary hyperparathyroidism; DVT of the arm; hypercalcemia; pleural effusion on the right; previous PleurX catheter, which has been removed; left hip pain; previous hip fracture and weakness related to the previous muscle injury and previous surgery and revision; cervical spinal stenosis, neck pain from that; mediastinal adenopathy and pharyngeal dysphagia; history of anxiety and panic attacks. PAST SURGICAL HISTORY: Surgically, he had a colon surgery in 1970 with colectomy and ileostomy in 1991, internal reservoir, he had a heart stent in 1995, he had an internal colon reservoir and ileostomy placed again in the past, last colonoscopy in 2012, he has had arthroscopy of the shoulder and rotator cuff repair, he has had a total knee on the right, he had a TURP and he had a hip fracture surgery and then revision in 09/2019, he has had tonsillectomy and adenoidectomy. FAMILY HISTORY: Mother had heart disease. Father had dementia. Brother had Parkinson's. SOCIAL HISTORY: He is . He is a former smoker. He lives at home with his . He is retired. He had 4 children. REVIEW OF SYSTEMS: General: He does feel weak. No fever, no chills. HEENT: No sore throat. No trouble swallowing. Cardiac: No chest pain. No palpitations. Respiratory: He has been short of breath. Otherwise, all systems reviewed and found to be negative unless otherwise stated. PHYSICAL EXAMINATION: Vital Signs: On hospital admission, he has a temperature of 98.7, pulse 87, blood pressure 171/73, respiratory rate 16, and O2 of 93% on room air. Weight 77 kg. General: He is in no acute distress. Heart: Regular rate and rhythm. Lungs: Sounds are decreased in both bases with some rhonchi, but no wheezes. Abdomen: Positive bowel sounds. Soft, nondistended, nontender. Ostomy in place. Extremities: Warm and dry. The left leg is weak; that is not new. Previous fracture and surgeries. His left arm has edema, also not new. There is some redness, but no warmth. Mental Status: He is alert. He is orientated x3 currently. IMAGING: Chest x-ray again does show the pleural effusions, but they are not severe. ASSESSMENT: 1. Acute on chronic heart failure exacerbation with elevated blood pressures and some edema. I am going to give him a dose of torsemide p.o. and since we are not able to get an IV, we will see if he has good urine output from this. 2. Complicated urinary tract infection, failing outpatient antibiotics. We will start him on some IM Rocephin daily. 3. Chronic pain in the neck. We will have him on subcutaneous Dilaudid if needed. 4. Insomnia. We will order his home medications except the trazodone; it is not working, and I will place him on Ambien. 5. End-stage renal disease. He is refusing dialysis. I did suggest that when he goes home, he should go home on hospice for more support in the home. He is considering this has been mentioned to him by Brenda in the past. 6. Lymphedema of the arm. We will use a Tubigrip. 7. Ankylosing spondylitis. We will continue the same prednisone 5 mg daily. 8. Pleural effusions. This should improve with the Demadex. 9. Ulcerative colitis. 10.History of lung cancer. 11.Depression and anxiety. 12.Palliative care status. 13.History of thrombosis after his port. We will check an INR tomorrow with other lab work and give him his 2.5 daily of Coumadin today. He was just recently restarted as he had been holding it for a procedure. PLAN: The patient will be admitted to acute cares for CHF and complicated UTI. Anticipate he will need at least 2 nights stay. We will monitor lab work. If we are able to get an IV, we will; otherwise, we will use a subcu line and IM injections. The patient is comfortable with this plan of care. He is a code level 5. MKA: 01/22/2021 20:02:00 MODL: 01/22/2021 20:49:57 /[id number]
[2021-01-22] MEDS: Gabapentin 100 MG Cap PO SCH (21:06)
[2021-01-22] MEDS: Sodium Bicarbonate 650 MG Tab PO SCH (21:06)
[2021-01-22] MEDS: Triamcinolone Acetonide 0.1% Crm 15 GM Tube TOP SCH (21:07)
[2021-01-22] MEDS: Zolpidem 5 MG Tab PO SCH (21:07)
[2021-01-22] MEDS: Warfarin 2.5 MG Tab PO SCH (21:07)
[2021-01-22] MEDS: HYDROmorphone 1 MG/ML Syringe SUBCUT PRN (21:08)
[2021-01-22] MEDS: Magnesium Chloride 64 MG Tab.ER PO SCH (22:30)
[2021-01-22] MEDS ORDERED: Non-Formulary Medication 1 Each PO PRN (22:38)
[2021-01-23] MEDS: HYDROmorphone 1 MG/ML Syringe SUBCUT PRN ×3 (03:19→12:53)
[2021-01-23 07:01] LABS: ANION GAP 13.4 mmol/L (5-15)
[2021-01-23] MEDS: predniSONE 5 MG Tab PO SCH (08:01)
[2021-01-23] MEDS: Loratadine 10 MG Tab PO SCH (08:01)
[2021-01-23] MEDS: Sodium Bicarbonate 650 MG Tab PO SCH ×2 (08:01→20:21)
[2021-01-23] MEDS: Magnesium Chloride 64 MG Tab.ER PO SCH ×2 (08:01→20:21)
[2021-01-23] MEDS: Gabapentin 100 MG Cap PO SCH ×3 (08:01→20:21)
[2021-01-23] MEDS ORDERED: Naloxone 0.4 MG/ML SDV IV PRN (08:34)
[2021-01-23] MEDS ORDERED: Potassium Chloride 10 MEQ Tab.ER PO ONE (08:59)
[2021-01-23] MEDS: OPIUM TINCTURE 10 MG/ML PO SCH ×3 (10:46→17:15)
[2021-01-23] MEDS: Ketoconazole [Nizoral 2% Crm] 15 GM Tube (OWN SUPPLY) TOP SCH (10:47)
[2021-01-23] MEDS: Triamcinolone Acetonide 0.1% Crm 15 GM Tube TOP SCH (11:13)
[2021-01-23] MEDS ORDERED: cefTRIAXone 1 GM Vial IM ONE (14:17)
[2021-01-23] MEDS ORDERED: Zolpidem 5 MG Tab PO PRN (14:18)
--- NOTE | 2021-01-23 14:53 | CT ---
[id number] CT/CT Cervical Spine WO IV Exam: CT Cervical Spine WO IV Clinical Data: NECK PAIN COMPARISON: NO PREVIOUS CAT SCAN OF THE CERVICAL SPINE IS AVAILABLE FINDINGS: There is a large left effusion. There are lytic changes of the right lateral mass of the C1 vertebral body. Correlation is made with the MRI of May 01, 2020. After discussion with the referring medical care provider, the history of lung cancer is acknowledged There are degenerative changes. IMPRESSION: LYTIC CHANGES RIGHT LATERAL MASS C1 VERTEBRAL BODY LIKELY METASTATIC DEGENERATIVE CHANGES CERVICAL SPINE Bogdan Uribe MD 01/23/21 0249 Thank you for allowing us to participate in the care of your patient.
[2021-01-23] MEDS ORDERED: Sodium Chloride 0.9% 10 ML Syringe IV PRN (14:57)
[2021-01-23] MEDS ORDERED: HYDROmorphone 1 MG/ML Syringe IVPUSH PRN (14:58)
[2021-01-23] MEDS ORDERED: cefTRIAXone 1 GM Vial IVPUSH ONE (15:00)
--- NOTE | 2021-01-23 15:02 | PN ---
Progress Note for MELISSA BROUSSARD Date: 01/23/2021 Room #: VM.217 SUBJECTIVE: This is hospital day #2 on a 75-year-old admitted with weakness after an admission last week for UTI. The patient had a good day on like Friday, Friday, but then did not get any sleep on Friday night and was just extremely tired on Friday, and his was having a hard time caring for him at home as he is up like 5 times during the night, although he has a catheter and an ostomy. He has neck pain, it has come back a little bit now this morning and he just got a pain pill that has not kicked in yet. He has had neck pain at least since last February. He had an injury at that time, but he had imaging. He has had MRI. He was supposed to get epidural injection at [facility] last week, but due to his UTI, it was canceled. He is on Neurontin. He is on oxycodone at home. He is on prednisone 5 mg daily due to concern for underlying ankylosing spondylitis. He does feel like his neck is a little bit more swollen today. He is having some trouble swallowing, but no trouble breathing. He has had a cough, but that might be related to some pleural effusions that are on the x-ray and he did get a dose of Demadex last night with good urine output, over a liter. He does have chronic kidney disease. The patient has been afebrile. He was unable to get an IV started, so got IV Rocephin which was given on the previous admission, then went home on Augmentin, but culture enterobacter was resistant, so we got switched to Cipro on Friday. OBJECTIVE: Vital Signs: His temperature is 97.3, pulse 83, blood pressure 139/83, respiratory rate 16, O2 of 93% on room air. General: He is in no acute distress. Heart: Regular rate and rhythm. S1, S2 without murmur. Lungs: Lung sounds are decreased with rhonchi in both bases. Abdomen: Positive bowel sounds. It is soft, nondistended, nontender. Ostomy in place with good output. Extremities: Warm and dry. No edema. : Valenzuela in place with clear urine. Mental Status: He is alert. He is orientated x3. LABORATORY DATA: Laboratory work this morning showed white count 6, hemoglobin 13.4, platelets 213. INR 1.6. He had just been restarted on Coumadin at the end of last week as he was off for the procedure. Sodium 139, potassium 3.4, chloride 96, bicarb 33, BUN 43. Creatinine 3 which is a slight increase, but not that far from his baseline. Glucose 107, calcium 9.6, and proBNP 1000. ASSESSMENT: 1. Neck pain, severe, with likely underlying ankylosing spondylitis. Given his trouble swallowing, I am going to do a CT cervical spine today just to further evaluate. I think some of it could be coming from the left arm edema with the swelling from that being redirected back into his central system. 2. Insomnia. He reports the Ambien helped for a little bit. He slept until 1 a.m. He has p.r.n. alprazolam available. We will give him a p.r.n. dose of Ambien 2.5 during the night. 3. Vunjx-mb-foornhl heart failure exacerbation. Blood pressures have improved. I am going to hold off on further diuretics. Last echo was actually back in 2014. His EF was 65% at that time. No plan to repeat an echo. 4. Complicated urinary tract infection due to Enterobacter, failing outpatient antibiotics with urinary retention and Valenzuela in place. We will continue IM Rocephin today. 5. End-stage renal disease. He is refusing dialysis. The plan for him would be to go home with hospice. I have discussed this with him and his . 6. Lymphedema of the arm. We will hold on the Tubigrip for now. 7. Ankylosing spondylitis. He will remain on prednisone 5 mg daily. Once his infection is under better control, we can try dose of Solu-Medrol or higher doses of prednisone. 8. Pleural effusions, likely clinically improved with Demadex. He is saturating better. He is not on oxygen. 9. History of lung cancer. 10.Ulcerative colitis, stable. No diarrhea or blood in his stool. 11.Depression and anxiety. 12.Palliative care status. 13.History of thrombosis. His INR is up to 1.6. He has not had any bleeding. We will give him low-dose heparin today. 14.Anemia, mild and stable, probably due to chronic kidney disease. PLAN: The patient will continue under acute cares with IM Rocephin, subcu line if able. Multiple attempts for IV lines have failed. He can eat and drink on his own. We will continue pain control. We will have a dose of Ambien p.r.n. during the night. He is a code level 5. MKA: 01/23/2021 14:17:34 MODL: 01/23/2021 14:54:24 /[id number]
[2021-01-23] MEDS: Heparin Sodium 5,000 Units/ML Vial SUBCUT SCH ×2 (15:27→20:21)
[2021-01-23] MEDS: oxyCODONE 5 MG Tab PO PRN (15:31)
[2021-01-23] MEDS: Warfarin 2.5 MG Tab PO SCH (20:20)
[2021-01-23] MEDS: Zolpidem 5 MG Tab PO SCH (20:21)
[2021-01-24] MEDS: oxyCODONE 5 MG Tab PO PRN ×3 (01:01→20:25)
[2021-01-24] MEDS: ALPRAZolam 0.5 MG Tab PO PRN (04:18)
[2021-01-24 06:57] LABS: ANION GAP 13.9 mmol/L (5-15)
[2021-01-24] MEDS: OPIUM TINCTURE 10 MG/ML PO SCH ×3 (08:00→17:24)
[2021-01-24] MEDS: Loratadine 10 MG Tab PO SCH (08:00)
[2021-01-24] MEDS: Sodium Bicarbonate 650 MG Tab PO SCH ×2 (08:01→20:25)
[2021-01-24] MEDS: Magnesium Chloride 64 MG Tab.ER PO SCH ×2 (08:01→20:24)
[2021-01-24] MEDS: predniSONE 5 MG Tab PO SCH (08:01)
[2021-01-24] MEDS: Gabapentin 100 MG Cap PO SCH ×3 (08:02→20:25)
[2021-01-24] MEDS: Heparin Sodium 5,000 Units/ML Vial SUBCUT SCH (08:02)
[2021-01-24] MEDS: Ketoconazole [Nizoral 2% Crm] 15 GM Tube (OWN SUPPLY) TOP SCH (08:03)
[2021-01-24] MEDS ORDERED: cefTRIAXone 1 GM Vial IVPUSH ONE (13:09)
--- NOTE | 2021-01-24 15:11 | CT ---
[id number] CT/CT Neck Soft Tissue WO IV Exam: CT Neck Soft Tissue WO IV Clinical Data: LUNG CANCER COMPARISON: CORRELATION IS MADE WITH YESTERDAY'S CAT SCAN FINDINGS: There is a large left effusion The thoracic esophagus is dilated. There is no mass or adenopathy otherwise The parotid and submandibular glands are normal Lytic changes of the lateral mass of the C1 vertebral body on the right again are seen IMPRESSION: LYTIC CHANGES OF RIGHT SIDE OF C1 VERTEBRAL BODY NO OTHER NEW FINDINGS Bogdan Uribe MD 01/24/21 [id number] Thank you for allowing us to participate in the care of your patient.
--- NOTE | 2021-01-24 15:50 | CT ---
[id number] CT/CT Abdomen Pelvis WO IV Exam: CT Abdomen Pelvis WO IV Clinical Data: LUNG CANCER DIFFICULTY SWALLOWING COMPARISON: RELATION IS MADE WITH THE EXAM OF 2019 FINDINGS: There is a large left pleural effusion. There is atelectasis at the right lung base. There is question of a left hilar mass. There are multiple collateral venous vessels of the anterior abdominal wall. IV contrast was not used. The liver and spleen are not enlarged. A 15 mm right hepatic hypodensity is likely a cyst. There is no adrenal mass There is no periaortic or juxta no adenopathy The pancreas shows no obvious acute abnormality There is no hydronephrosis There are small renal cysts The pelvis shows no mass or adenopathy There is a catheter in the urinary bladder. There is an ostomy. There is no free air or free fluid in the abdomen or pelvis Presacral soft tissue confluent density is seen likely postoperative, stable since the CAT scan dated October 14, 2018 There are lytic changes of upper lumbar vertebral bodies with extension to the spinal canal. MRI of the entire spine may be helpful if needed IMPRESSION: METASTATIC BONE DISEASE. LARGE LEFT EFFUSION LIKELY MALIGNANT ATELECTASIS BOTH LUNG BASES MULTIPLE COLLATERAL VENOUS VESSELS LIKELY RELATED TO VENOUS OBSTRUCTION PERHAPS OF THE SUPERIOR VENA CAVA LEFT UPPER EXTREMITY EDEMA IS NOTED INCIDENTALLY LIKELY FROM INNOMINATE VEIN OBSTRUCTION CONTRAST CT CHEST MAY BE HELPFUL ALSO Bogdan Uribe MD 01/24/21 9932 Thank you for allowing us to participate in the care of your patient.
--- NOTE | 2021-01-24 16:16 | CT ---
[id number] CT/CT Chest WO IV Exam: CT Chest WO IV Clinical Data: LUNG CANCER COMPARISON: CORRELATION IS MADE WITH THE OTHER RECENT IMAGING STUDIES FINDINGS: A large left pleural effusion is seen. There is volume loss at the lung bases There is pleural thickening and a spiculated pleural mass within the major fissure on the right. Lytic changes are seen involving the right L2 vertebral body on image #75, series 4 There is bronchiectasis. There is left upper extremity swelling There is evidence of collateral venous vessels. The thoracic esophagus is dilated. There is likely obstruction of the superior vena cava and or left innominate vein. Venous ultrasound or contrast venography would be helpful Contrast CT chest would be helpful There is minimal mediastinal adenopathy IMPRESSION: LARGE LEFT EFFUSION VOLUME LOSS AT BOTH LUNG BASES SPICULATED DENSITY ALONG THE MAJOR FISSURE WITHIN RIGHT MID HEMITHORAX PROBABLE THORACIC INLET VENOUS OBSTRUCTION AT LEAST ON THE LEFT POSSIBLE BONY METASTATIC DISEASE INVOLVING THE LUMBAR SPINE Bogdan Uribe MD 01/24/21 [id number] Thank you for allowing us to participate in the care of your patient.
--- NOTE | 2021-01-24 18:11 | PN ---
Progress Note for MELISSA BROUSSARD Date: 01/24/2021 Room #: VM.217 SUBJECTIVE: This is a 76-year-old on swing bed, admitted with weakness and UTI, failing outpatient treatment for Enterobacter initially with Augmentin and later with Cipro. He has been afebrile. He has a Valenzuela catheter in place that is from his previous admission as he was having difficulty passing his urine. He does have chronic kidney disease, but he had been short of breath with pleural effusion. He got a dose of Demadex and had excellent urine output, but his creatinine now has gone up to 3.3 from his initial 2.8, although 2.5 to 3 is around his baseline. He is having some trouble with shortness of breath, but more so he is bothered by swallowing, stuff is in his lower throat, kind of upper sternal area where food just is not going down, so yesterday we did a CT of the neck because he had severe neck pain which suggested a lytic lesion to C1. Discussion was had about further imaging for evaluation since he has a history of stage 1 adenocarcinoma of the right lung treated definitively with radiation at [facility] in 09/2018. He also had recurrent right-sided pleural effusions and had a PleurX catheter for a while on that side. Now this side, he has pleural effusion on the left. The patient has no chest pain. He is coughing up some white sputum. He has been getting IV Rocephin. He has been unable to work with PT though due to the IV in his foot. He has not been eating well due to the trouble swallowing. He has had good ostomy output. He has been using his p.r.n. pain medications and has not had any IV Dilaudid so far today. OBJECTIVE: Vital Signs: His temperature 97.7, pulse 85, blood pressure 144/94, respiratory rate 22, and O2 of 91 on room air. General: He is in no acute distress. Heart: Regular rate and rhythm. Lungs: Lung sounds decreased over that left base, but no crackles, no wheezes. Abdomen: Positive bowel sounds. Soft, nondistended, nontender. Extremities: Warm and dry. No edema. Valenzuela in place. Clear urine. Ostomy in place. Mental Status: Alert and orientated x3. No confusion. LABORATORY DATA: Lab work today did show him to have a white count 7.2, hemoglobin 13.4, platelets 227. INR up to 1.9. Sodium 138, potassium 3.9, chloride 96, bicarb 32, BUN 50, creatinine 3.3, glucose 101, calcium 9.5, magnesium 2.1. ALT, AST all normal. Albumin actually 3.4. ASSESSMENT: 1. Complicated urinary tract infection with Enterobacter. He is getting IV Rocephin now, day #3. We will switch him over to oral tomorrow, take out his IV, so he can work with therapies. 2. Severe neck pain, likely metastatic adenocarcinoma to the bone. He will have further CT chest, abdomen, and pelvis to further evaluate. 3. Trouble swallowing. We will get a soft tissue of the neck and get Speech involved. 4. Insomnia. He has Ambien available along with other p.r.n.'s. 5. Sozfp-de-qkhhmut heart failure. Blood pressures did improve. He had good urine output over the Demadex. I feel like his one-sided pleural effusion is more malignancy-related. We will hold off on further diuretics at this time, especially due to his really poor oral intake currently. 6. End-stage renal disease. He is refusing dialysis. Ultimately, he will go on hospice, but if he needs radiation treatments for cancer, he would get that first. 7. Lymphedema of the left arm that is likely related to the fistula. He has a supportive sock in place. 8. Ankylosing spondylitis. He is on prednisone 5 mg daily. We will discuss further with cancer experts at [facility]. I am waiting for a call back. He may need some dexamethasone. 9. Left-sided pleural effusion. We could consider thoracentesis, but now his INR is nearly therapeutic. He is not overly symptomatic from it. 10.History of adenocarcinoma, lung cancer. 11.Ulcerative colitis. 12.Depression and anxiety. 13.Palliative care status. 14.History of thrombosis. His INR is up to 1.9. I will stop the heparin. 15.Chronic anemia due to chronic kidney disease. PLAN: The patient will continue acute cares. We will give him a IV Rocephin and discontinue his IV and get him up and working with therapies. We will get the CT of the chest, abdomen, neck, and pelvis. We will repeat lab work tomorrow. We will continue with pain control and get a Speech Therapy consult. MKA: 01/24/2021 17:26:43 MODL: 01/24/2021 18:02:36 /[id number]
[2021-01-24] MEDS: HYDROmorphone 1 MG/ML Syringe SUBCUT PRN ×2 (18:42→23:17)
[2021-01-24] MEDS: Warfarin 2.5 MG Tab PO SCH (20:24)
[2021-01-24] MEDS: Zolpidem 5 MG Tab PO SCH (20:25)
[2021-01-25] MEDS: HYDROmorphone 1 MG/ML Syringe SUBCUT PRN ×3 (03:28→18:19)
[2021-01-25] MEDS: ALPRAZolam 0.5 MG Tab PO PRN (03:28)
[2021-01-25] MEDS: OPIUM TINCTURE 10 MG/ML PO SCH ×3 (06:06→17:30)
[2021-01-25 06:44] LABS: ANION GAP 13.8 mmol/L (5-15)
[2021-01-25] MEDS: Magnesium Chloride 64 MG Tab.ER PO SCH ×2 (07:12→20:46)
[2021-01-25] MEDS: Gabapentin 100 MG Cap PO SCH ×3 (07:12→20:46)
[2021-01-25] MEDS: Ketoconazole [Nizoral 2% Crm] 15 GM Tube (OWN SUPPLY) TOP SCH (07:12)
[2021-01-25] MEDS: predniSONE 5 MG Tab PO SCH (07:12)
[2021-01-25] MEDS: oxyCODONE 5 MG Tab PO PRN ×2 (07:12→21:38)
[2021-01-25] MEDS: Sodium Bicarbonate 650 MG Tab PO SCH ×2 (07:12→20:47)
[2021-01-25] MEDS: Loratadine 10 MG Tab PO SCH (07:12)
[2021-01-25] MEDS ORDERED: Torsemide 20 MG Tab PO ONE (08:30)
[2021-01-25] MEDS: Levofloxacin 250 MG Tab PO SCH (10:14)
--- NOTE | 2021-01-25 18:20 | PN ---
Progress Note for MELISSA BROUSSARD Date: 01/25/2021 Room #: VM.217 SUBJECTIVE: This is hospital day #4 on a 76-year-old admitted with weakness, failing outpatient UTI treatments. He has had severe neck pain for the past nearly [address] was concerning for metastatic disease. Contact has been made with [facility] and recommendations made to refer him back to Medical Oncology for a consult and Interventional Radiology there for thoracentesis next week. The patient feels like his swallowing is a little better. Speech Therapy did recommend a swallow eval and a soft diet. CT did not show any causes for trouble swallowing. Over a year ago, he was supposed to have an EGD over at [facility], but did not. Otherwise, he has had some trouble breathing and CT did show worsening left-sided pleural effusion. He has not had any fever. He has had decreased urine output. He has not been on any IV fluids. He did get a dose of Demadex on admission and we will try another dose today since his blood pressures have been elevated overnight. The patient has used some p.r.n. subcutaneous Dilaudid for pain control about twice a day. He is also using his oxycodone which he takes at home about 3 times a day. He is on Ambien here to sleep at night 5 mg. He does not want to increase the dose. He has had some confusion in the past, but it has been okay while in the hospital. Otherwise, he has a Valenzuela in place per his request. He has had some urinary retention issues and surgeries in the past and that is how this started. He was just unable to pass urine or straight cath. OBJECTIVE: Vital Signs: Today, his temperature is 97.8, pulse 82, blood pressure 128/73, respiratory rate 20, and O2 of 91% on room air. General: He is in no acute distress. Heart: Regular rate and rhythm. S1, S2 without murmur. Lungs: Lung sounds are clear to auscultation bilaterally without crackles or wheezes. Abdomen: Has an ostomy in place. Positive bowel sounds. Soft, nontender. Extremities: Warm, dry. No edema. His left arm has swelling. He has already seen a vascular specialist for this. Mental Status: He is alert. He is orientated x3. He is answering questions. Neck: Supple. There are no enlarged lymph nodes or edema, but he has decreased range of motion. LABORATORY DATA: Lab work today does show him to have a white count of 9.4, hemoglobin 13.5, platelets 242. INR 2. Sodium 137, potassium 3.8, chloride 95, bicarb 32, BUN 55, creatinine 3.3, glucose 87, calcium 9.1. ASSESSMENT: 1. Complicated urinary tract infection with Enterobacter. He completed 3 days of IV Rocephin. We will finish his 7- day course with another 4 days of Levaquin. 2. Severe neck pain, likely or possibly metastatic adenocarcinoma or other forms of cancer. We will refer him back to [facility] and Interventional Radiology for workup and biopsy. 3. Large left pleural effusion. I do feel like this is becoming symptomatic again. We will stop his Coumadin and Interventional Radiology at [facility] will hopefully drain next week. 4. Trouble swallowing. This could be multifactorial. Given the patient's overall prognosis and goal of care to be palliative radiation and then hospice, we will hold off on a swallow eval and we will my modify diet as tolerated. 5. Insomnia. We will continue with Ambien. 6. Rayfg-mb-keokroy heart failure. I will give him another dose of Demadex today. 7. End-stage renal disease. He is refusing dialysis. 8. Lymphedema in the arm. I will put this in the referral to [facility] as well. 9. Ankylosing spondylitis. He is on prednisone 5 mg daily. Given that things overall have improved pain see, I will hold off on increased prednisone or any dexamethasone right now. I did call Oncology, but only was able to get through to a nurse. 10.History of adenocarcinoma of the lung treated with radiation in 2019. It was felt to be definitive. 11.Ulcerative colitis. 12.Depression and anxiety. 13.Palliative care status. 14.History of thrombosis with previous superior vena cava syndrome. He is therapeutic on Coumadin. 15.Chronic anemia due to chronic kidney disease. He has had no ongoing bleeding. PLAN: The patient will continue on acute cares. The plan will be home with home health tomorrow. He has been working with Therapies here. He says he has to get out of here because he cannot sleep good here, but one of his biggest discomforts at home is that he is up a lot at night. We will place appropriate referrals over to [facility] and continue pain control and discharge back on his regular oxycodone. MKA: 01/25/2021 17:29:01 MODL: 01/25/2021 18:10:47 /[id number]
[2021-01-25] MEDS: Zolpidem 5 MG Tab PO SCH (20:46)
[2021-01-26] MEDS: HYDROmorphone 1 MG/ML Syringe SUBCUT PRN (02:10)
[2021-01-26] MEDS: oxyCODONE 5 MG Tab PO PRN (05:04)
[2021-01-26 05:08] VITALS: BP 168/67; PULSE 81
[2021-01-26] MEDS: OPIUM TINCTURE 10 MG/ML PO SCH ×2 (06:35→12:08)
[2021-01-26] MEDS: Levofloxacin 250 MG Tab PO SCH (06:40)
[2021-01-26 07:09] LABS: ANION GAP 14.3 mmol/L (5-15)
[2021-01-26] MEDS ORDERED: Potassium Chloride 10 MEQ Tab.ER PO SCH (08:38)
[2021-01-26] MEDS: predniSONE 5 MG Tab PO SCH (08:56)
[2021-01-26] MEDS: Gabapentin 100 MG Cap PO SCH (08:56)
[2021-01-26] MEDS: Ketoconazole [Nizoral 2% Crm] 15 GM Tube (OWN SUPPLY) TOP SCH (08:56)
[2021-01-26] MEDS: Loratadine 10 MG Tab PO SCH (08:56)
[2021-01-26] MEDS: Sodium Bicarbonate 650 MG Tab PO SCH (08:56)
[2021-01-26] MEDS: Magnesium Chloride 64 MG Tab.ER PO SCH (08:56)
--- NOTE | 2021-01-27 03:32 | DISCH ---
PRIMARY DISCHARGE DIAGNOSES: 1. 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 2. Severe neck pain with probable metastatic lesion to the cervical spine, possibly adenocarcinoma of the lung since patient has a history of this versus malignant melanoma with SPEP and UPEP pending at the time of discharge. 3. Large left pleural effusion. It worsened during his stay despite getting Demadex. His INR became therapeutic, so he will be off Coumadin with referral to [facility] for hopefully a tap next week. 4. Trouble swallowing, multifactorial. The patient has a history of this. He has had scopes and workup at [facility] over a year ago. He is seen by Speech. At this time, I do not recommend a swallow eval. His swallowing actually improved prior to discharge. Neck CT soft tissue did not show any cause for problem swallowing. 5. Insomnia, improved with Ambien. 6. Acute on chronic heart failure. He had a couple doses of Demadex. He is not having any increased shortness of breath. He is not requiring oxygen. He is not having any swelling in the legs. We will hold off on further diuretics. 7. End-stage renal disease. Creatinine has stayed at 3.3. He is refusing dialysis. 8. Edema of the left arm. This is due to his fistula. This was also put on his referral for [facility]. 9. Ankylosing spondylitis, on prednisone 5 mg daily. We will continue with the same. 10.History of adenocarcinoma of the right lung with multiple concerning areas on his chest CT that was done on 01/24 including pleural thickening and spiculated mass within the major fissure on the right. The thoracic esophagus was dilated. There was evidence of collateral vessels. 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 There is also the question of the left hilar mass reported on the abdominal CT. This all was discussed with the patient and , and plan for referral back to [facility] was made. 11.Ulcerative colitis, stable. He has an ostomy. 12.Depression and anxiety. 13.Palliative care status. He is planning to go on hospice even if cancer is not diagnosed as he refuses dialysis. 14.History of thrombosis with superior vena cava syndrome. He is therapeutic on Coumadin, but decision made to stop Coumadin given the benefits in the short term of getting his thoracentesis and procedures. He has already had to hold it for a neck injection that got canceled. He did get bridged with subcu heparin while he was here. 15.Chronic anemia due to chronic kidney disease and overall chronic disease. His hemoglobin was stable at 13 on discharge. REASON FOR ADMISSION: On the date of admission, this 76-year-old male with a known history of lung adenocarcinoma treated with radiation in 2019, and BPH with previous prostate surgery, had been having difficulty with cathing at home and had been admitted for a previous UTI and catheter was left in place. He was treated with antibiotics, but unfortunately culture later returned resistant to Augmentin and he was placed on Cipro, but still he was very weak, therefore, was brought back to the ER and urine continued to be positive. Therefore, he was given IM Rocephin until an IV could be in place, and then IV Rocephin for 3 days. Yesterday, switched over to oral Levaquin at home for 3 more days of that. He was afebrile during his stay. His white counts remained normal. He was gaining a little bit of strength back, but overall his 1 leg was just quite weak as he previously fractured it and had to have a revision, so was very slow to work with therapies and had been previously on Home Health. He was also having difficulty sleeping. He was started on Ambien. He tolerated that without any significant confusion, but when he got additional doses of subcu or IV Dilaudid, it caused him to be more confused, so he will return home on his same oxycodone. The patient is also on p.r.n. Xanax at home. The patient has been under palliative care status. He has actually been referred to hospice, recommended for it over 6 months ago and that was before the suspicion of his cancer has returned. This was by [facility]. I have already referred him back and talked to [facility] for outpatient followups and treatments. Patient during his stay had some cough. This seemed to improve with the Levaquin as well. He otherwise states his breathing was the same. He never required any oxygen. He got a couple of doses of oral Demadex which did help to improve his urine output. Otherwise, his creatinine which at baseline is usually 3 or worse, was 2.8 on admission, but went up to 3.3 and stayed there for the last 3 days. He is actually resting more comfortably this morning. Had not complained of the neck pain for the last 2 days, which has been bothering him at least since 02/2020. Discharging vitals include a temperature 98, pulse 81, blood pressure 168/67, respiratory rate 20, and O2 of 92% on room air. Weight 74.8 kg. In general, he is in no acute distress. His heart has regular rate and rhythm. S1, S2 without murmur. Lungs sounds are decreased over that left lung. No crackles. No wheezes. Right lung is clear. Abdomen, ostomy in place, nondistended, nontender. Extremities, warm and dry. No edema. Mental status, alert and orientated x3. , Valenzuela in place. He is eating about 50% of his meals. Otherwise, mental status; he is not overly depressed or anxious. DISCHARGE PLAN AND INSTRUCTIONS: He will follow up with Dr. Calderon on 02/08 at 1 p.m. No lab work due. He will see [facility] hopefully next week for thoracentesis and possible biopsies and also to address the left arm edema, which they know about from his previous admissions at [facility]. He will stop Coumadin with no plans to restart. We have also referred him to [facility]. He will be on Levaquin 250 for 3 more days. He will keep the catheter in place, we will change it on 02/08. He will be on Ambien 5 mg at night for sleep and we will leave all his other pain medications the same. The patient has multiple medical comorbidities and is at high risk for readmission. We will try to minimize these risks by instituting Home Health, but ultimately patient is not yet ready for hospice. Greater than 30 minutes spent on this discharge process. MKA: 01/26/2021 09:43:01 MODL: 01/27/2021 03:26:49 /[id number]
== END 2021-01-26 10:55 | disposition home health service (06) | DRG 698 ==
LOC: VM.ED 15:46 → VM.MS 18:37
PROVIDERS: ADMIT Physician Assistant Medical; ATTEND Internal Medicine
DX: T83.511A Infection and inflammatory reaction due to indwelling urethral catheter, initial encounter (principal); N18.6 End stage renal disease; K91.2 Postsurgical malabsorption, not elsewhere classified; J90 Pleural effusion, not elsewhere classified; C34.91 Malignant neoplasm of unspecified part of right bronchus or lung; C79.51 Secondary malignant neoplasm of bone; N40.0 Benign prostatic hyperplasia without lower urinary tract symptoms; N18.4 Chronic kidney disease, stage 4 (severe); K51.90 Ulcerative colitis, unspecified, without complications; M54.9 Dorsalgia, unspecified; N39.0 Urinary tract infection, site not specified; I50.9 Heart failure, unspecified; M54.2 Cervicalgia; R13.10 Dysphagia, unspecified; G47.00 Insomnia, unspecified; Z20.822 Contact with and (suspected) exposure to COVID-19; M45.9 Ankylosing spondylitis of unspecified sites in spine; F32.A Depression, unspecified; F41.9 Anxiety disorder, unspecified; D63.1 Anemia in chronic kidney disease; N40.1 Benign prostatic hyperplasia with lower urinary tract symptoms; R33.8 Other retention of urine; E78.1 Pure hyperglyceridemia; E53.8 Deficiency of other specified B group vitamins; N31.9 Neuromuscular dysfunction of bladder, unspecified; J44.9 Chronic obstructive pulmonary disease, unspecified; E21.3 Hyperparathyroidism, unspecified; J30.9 Allergic rhinitis, unspecified; I25.10 Atherosclerotic heart disease of native coronary artery without angina pectoris; E78.00 Pure hypercholesterolemia, unspecified; K21.9 Gastro-esophageal reflux disease without esophagitis; G89.29 Other chronic pain; M19.90 Unspecified osteoarthritis, unspecified site; G25.81 Restless legs syndrome; E83.42 Hypomagnesemia; E83.52 Hypercalcemia; Z87.891 Personal history of nicotine dependence; Z51.5 Encounter for palliative care; Z86.718 Personal history of other venous thrombosis and embolism; Z79.01 Long term (current) use of anticoagulants; Z98.890 Other specified postprocedural states; Z88.8 Allergy status to other drugs, medicaments and biological substances; Z79.52 Long term (current) use of systemic steroids; Z79.899 Other long term (current) drug therapy
CPT/HCPCS: 36415; 70490; 71045; 71250; 72125; 74176; 80048; 80053; 81001; 83605; 83735; 83880; 84155; 84156; 84165; 84166; 85025; 85610; 92610-GN; 93005; 93010; 96372; 97162-GP; 99284; 99285-25; A9270-GY; J0696; J1170; J1644; J7512; U0002